=== PATIENT | male | born 1960 | race Caucasian/White ===

== ENCOUNTER → 2020-02-28 15:25 | Outpatient (BNVA) | payer OTHER, SELFPAY | PROVIDERS: Family Provider Nurse Practitioner; Referring Provider Nurse Practitioner; Visit Provider Podiatrist Foot & Ankle Surgery | DX: M79.671 Pain in right foot (principal); M21.41 Flat foot [pes planus] (acquired), right foot; M77.31 Calcaneal spur, right foot | CPT/HCPCS: 73630 ==

== ENCOUNTER 2021-03-14 09:18 | Outpatient (CLI) | payer BC, SELFPAY ==
[2021-03-14 09:25] VITALS: BP 161/94; PULSE 81; RESP 18; TEMP 36.6; O2SAT 98; BMI 31.1
[2021-03-14 09:56] VITALS: BP 139/86; PULSE 71; RESP 16; TEMP 36.7; O2SAT 93
[2021-03-14 10:54] VITALS: BP 156/83; PULSE 69; RESP 16; TEMP 36.7; O2SAT 97
[2021-03-14 10:57] VITALS: BP 156/83; PULSE 69; RESP 16; TEMP 36.7; O2SAT 97
== END 2021-03-14 09:19 | disposition home or self-care (01) ==
LOC: OPS 09:23
PROVIDERS: PCP Nurse Practitioner; Visit Provider Nurse Practitioner Family
DX: U07.1 COVID-19 (principal)
CPT/HCPCS: 96365

== ENCOUNTER → 2021-03-28 10:29 | Outpatient (BNVA) | payer OTHER, SELFPAY | PROVIDERS: PCP Nurse Practitioner; Referring Provider Nurse Practitioner; Visit Provider Podiatrist Foot & Ankle Surgery | DX: M79.672 Pain in left foot (principal) | CPT/HCPCS: 73630 ==

== ENCOUNTER 2021-04-23 11:33 | Emergency (ER) | payer OTHER, SELFPAY ==
[2021-04-23 11:44] VITALS: BP 154/85; PULSE 90; RESP 16; TEMP 36.5; O2SAT 97; BMI 32.5
[2021-04-23 11:53] VITALS: BP 154/85; PULSE 90; RESP 16; TEMP 36.3; O2SAT 97
--- NOTE | 2021-04-23 12:03 | XR_ITS ---
WS: [id number] Exam: XR wrist LT min 3V* [id number] Date/Time of Exam: 04/23/2021 12:08 PM Reason For Exam: injury There are no fractures, soft tissue swelling, or unusual calcifications. The wrist shows normal bony alignment. There is no irregularity of the bony architecture. XR/XR wrist LT min 3V* [id number] IMPRESSION: Negative left wrist.
--- NOTE | 2021-04-23 12:03 | XR_ITS ---
WS: [id number] Exam: XR hand LT min 3V* [id number] Date/Time of Exam: 04/23/2021 12:08 PM Reason For Exam: injury Findings: No fractures, soft tissue swelling, or unusual calcifications are noted. The hand shows normal bony alignment. There is no irregularity of the bony architecture. XR/XR hand LT min 3V* [id number] IMPRESSION: Normal left hand.
--- NOTE | 2021-04-23 12:04 | W.ED.UPPEXIN ---
HPI - Extremity Injury (Upper) General: Chief Complaint: Extremity Injury, Upper Stated Complaint: left hand injury Time Seen by Provider: 04/23/21 12:03 Source: patient and family Mode of arrival: ambulatory Limitations: no limitations History of Present Illness: Patient is a 60-year-old male who presents to ED today with a complaint of left wrist and hand pain/injury that he sustained while at work earlier today while working on a piece of machinery. He states the hand/wrist got jammed. No crush injury. This is a worker's comp injury. He has not noticed any swelling. He does not complain of numbness, tingling, loss of sensation. MD complaint: injury to: left, wrist and hand Onset (ago): hour(s) Other Extremity Injury: Left: hand and wrist Other injuries: none Place: work Relieving factors: immobilization Exacerbating factors: movement of extremity Associated symptoms: Reports no associated symptoms Review of Systems Musc: Reports: extremity pain (L hand) and joint pain (L wrist); Denies: extremity swelling, joint swelling, joint redness or limited range of motion Neuro: Denies: numbness in extremities or sensory changes PFSH ED PFSH: Medical History High cholesterol Hypertension Undifferentiated spondyloarthropathy Family History Denies family history of Diabetes Cancer Social History Smoking and tobacco status: former smoker Alcohol intake: never Household members: spouse Marital status: Current occupational status: employed Current occupation: [employer] Physical Exam Const: COMMON NORMALS: no acute distress, patient oriented x3, no limitations and alert GENERAL APPEARANCE: cooperative Extremity: LEFT UPPER EXTREMITY: Yes wrist (TTP distal dorsal wrist; full but painful ROM; no swelling/deformity) Left wrist: Yes neurovascular exam (normal) and Yes hand & digits (TTP thenar eminence, no swelling noted; full ROM of digits) Left hand and digits: Yes neurovascular exam (normal) Neuro: COMMON NORMALS: patient oriented x3, moves all extremities, no focal motor deficits and no sensory deficits noted SENSORIUM/ORIENTATION: Yes alert Skin: COMMON NORMALS: no rashes or lesions noted GENERAL SKIN EXAM: no rashes or lesions noted TRAUMA: no lacerations or abrasions Course Vital Signs: Vital signs: Vital Signs Temperature 97.4 F L 04/23/21 11:53 Pulse Rate 90 04/23/21 11:53 Respiratory Rate 16 04/23/21 11:53 Blood Pressure 154/85 04/23/21 11:53 Pulse Oximetry 97 04/23/21 11:53 MDM - Extremity Injury (Upper) Medical Decision Making XRs negative. Will place in velcro wrist splint and he will follow up with Worker's Comp for further evaluation. Lab Data Radiology Impressions Hand X-Ray 04/23/21 12:03 IMPRESSION: Normal left hand. Wrist X-Ray 04/23/21 12:03 IMPRESSION: Negative left wrist. Discharge Plan Discharge Patient Disposition: Home Clinical Impression: Sprain of unspecified part of left wrist and hand, initial encounter Condition: Stable Prescriptions: No Action (DME) custom orthotics with ayala's extension on right foot See Rx Instructions .Route .MEDSUPPLY Qty: 1 0RF Rx Instructions: As directed by ADIS&O silver sulfadiazine 1 % cream 1 applic topical BID 14 Days Qty: 50 2RF Rx Instructions: apply a 1.5 mm thickness cephalexin 500 mg capsule 500 mg PO BID 7 Days Qty: 14 0RF potassium citrate 10 mEq (1,080 mg) tablet extended release PO 0RF lisinopril 40 mg tablet PO 0RF hydroxychloroquine 200 mg tablet PO 0RF amlodipine 5 mg tablet PO 0RF (DME) custom orthotics with ayala's extension on right foot See Rx Instructions .Route .MEDSUPPLY Qty: 1 0RF Rx Instructions: As directed Discharge Orders: Discharge ED (Routine); Ordered 04/23/21 Ordered By: Beba Rick Referrals: Kacey Mlaone FNP [Primary Care Provider] - Activity Restrictions/Additional Instructions: As discussed please follow-up with Worker's Comp. as directed. 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
== END 2021-04-23 12:46 | disposition home or self-care (01) ==
PROVIDERS: Emergency Provider Physician Assistant; PCP Nurse Practitioner
DX: S63.92XA Sprain of unspecified part of left wrist and hand, initial encounter (principal); I10 Essential (primary) hypertension; Z87.891 Personal history of nicotine dependence; X58.XXXA Exposure to other specified factors, initial encounter; Y99.0 Civilian activity done for income or pay
CPT/HCPCS: 29260; 73110; 73130; 99282

== ENCOUNTER 2021-07-27 06:55 | Day surgery (SDC) | payer OTHER, SELFPAY ==
[2021-07-26 12:40] VITALS: BMI 31.4
[2021-07-27] VITALS (8 sets, daily range): BP systolic 108–148; BP diastolic 51–83; PULSE 55–65; RESP 10–20; TEMP 36.3–36.8; O2SAT 96–100
--- NOTE | 2021-07-27 | SCC_ITS ---
Procedure done: Excision of bone left great toe CPT code 12569 2 seconds of fluoroscopic guidance, for a cumulative dose of 0.025 mGy, was provided to Dr. Botello by the radiology department. C-arm images of the foot were saved for the patient's permanent record. [facility]
--- NOTE | 2021-07-27 06:05 | PM.OPSURHP ---
Providers/Chief Complaint Primary Care Provider: ALEX Singh History of Present Illness Clive Conrad is a 60 year old male?with a history of comminuted fracture to the left great toe. Was injured by a concrete block that fell on his left foot. Some of the fracture fragments are now proud and he is feeling them when wearing shoes and ambulating causing him pain on a daily basis. He would like to discuss surgical excision. Patient denies any subjective nausea, vomiting, fever, chills, shortness of breath or chest pain. Review of Systems General: Reports: 10 or more systems reviewed and unremarkable except in HPI and below Const: Denies: fever(s) or chills Eyes: Denies: change in vision Card: Denies: chest pain or palpitations Resp: Denies: dyspnea or productive cough GI: Denies: abdominal pain, nausea or vomiting : Denies: flank pain Musc: Reports: extremity pain, joint pain, joint stiffness, limited range of motion and deformity Skin/Breast: Reports: skin tenderness; Denies: rash Neuro: Reports: difficulty walking; Denies: numbness in extremities, sensory changes or frequent falls Psych: Denies: suicidal ideation Loyd/Lymph: Denies: easy bruising Medications/Allergies Home Medications Medication Instructions Recorded Confirmed Last Taken Type amlodipine 5 mg tablet 1 tab PO DAILY 02/28/20 07/27/21 07/27/21 History custom orthotics with ayala's #1 ea 02/28/20 05/30/21 Unknown Rx extension on right foot hydroxychloroquine 200 mg tablet 1 tab PO DAILY 02/28/20 07/27/21 07/26/21 History lisinopril 40 mg tablet 1 tab PO DAILY 02/28/20 07/27/21 07/26/21 History potassium citrate 10 mEq (1,080 1 tab PO DAILY 02/28/20 07/27/21 07/26/21 History mg) tablet,extended release custom orthotics with ayala's #1 ea 06/28/20 05/30/21 Unknown Rx extension on right foot pravastatin PO DAILY 07/26/21 07/26/21 History Allergies Allergy/AdvReac Type Severity Reaction Status Date / Time No Known Allergies Allergy Verified 07/26/21 12:33 PFSH PFSH: Medical History High cholesterol Hypertension Undifferentiated spondyloarthropathy Family History Denies family history of Diabetes Cancer Social History Smoking and tobacco status: former smoker Alcohol intake: never Household members: spouse Marital status: Current occupational status: employed 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 The following is a focused bilateral lower extremity exam. VASCULAR: Dorsalis pedis and posterior tibial arteries palpable +2.? Capillary refill time less than 3 seconds to the distal hallux bilaterally. Calf is supple and nontender proximally and distally.? No pedal edema appreciated.? Pedal hair growth present. NEUROLOGICAL: Epicritic and protopathic sensations grossly intact to the lower extremities.? +2 Achilles tendon reflex noted bilaterally.? Negative Tinel sign upon percussion of lower extremity nerves. DERMATOLOGICAL: Lower extremity skin is well-hydrated, normal texture and turgor.? There are no open sores or lesions noted to the lower extremities.? No erythema or ecchymosis present to the bilateral legs and feet.? Dystrophic left great toenail with thickening, discoloration and longitudinal ridge split down the middle. MUSCULOSKELETAL: Pain to palpation at the distal tuft of the left great toe. No pain to palpation at the right first metatarsophalangeal joint.? Osseous prominence at the dorsal medial aspect of the right first metatarsal phalangeal joint.? Less than 10 degrees of range of motion at the right first metatarsal phalangeal joint there is pain with attempted range of motion.? Ankle joint dorsiflexion 10 degrees beyond neutral.? Muscle strength 5 out of 5 in all 3 cardinal planes of bilateral foot and ankle.? Fully reducible hammertoe deformities 2 and 5 of the right foot.? CARDIOVASCULAR: S1, S2, normal rate, normal rhythm. Dorsalis pedis and posterior tibial arteries palpable. LUNGS: Clear to auscltation, no use of acessory muscles, no crackles or wheezes. A&P Assessment and plan (1) Fracture of great toe: Status: Acute Qualifiers: Encounter type: sequela Fracture alignment: displaced Fracture type: closed Laterality: left Phalanx: distal Qualified Code(s): S92.422S - Displaced fracture of distal phalanx of left great toe, sequela (2) Left foot pain: Status: Acute (3) Crushing injury of left foot and toe: Status: Acute Qualifiers: Encounter type: sequela Qualified Code(s): S97.82XS - Crushing injury of left foot, sequela; S97.102S - Crushing injury of unspecified left toe(s), sequela Plan Patient has pain on a daily basis with everyday activities such as walking and standing wearing shoes at the distal tuft of his left great toe. He attributes the pain to prominent fracture fragments they would like to have excised. On x-ray there are several loose bodies and fracture fragments that are proud. I discussed with the patient risk versus benefits of surgical excision of loose bodies and smoothing of the distal phalanx, risks include pain, bleeding, numbness, infection, failure to excise fracture fragments, damage to adjacent soft tissue structures, persistent pain following excision, chronic swelling and chronic numbness. Patient is agreeable wishes to proceed. Excision of osseous body/fracture fragments left great toe, 07/27/2021, SHEBA, wallace, supine, 30 minutes. 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
--- NOTE | 2021-07-27 07:16 | ANES.PREANE2 ---
Pre-Anesthetic Assessment Height/Weight: Height 1.83 m Weight 105.233 kg Preop Diagnosis: Posttraumatic arthritis left foot, loose body left great toe. Operation Date: 07/27/21 08:30 Proposed Procedures p Excision of bone left great toe CPT code: 95761,S92.422s,M19.172(Left) - Gurmeet Botello DPM Familial anesthetic complications: None Was Beta Hi taken within 24 hours: N/A Was Clonidine taken within 24 hours: N/A Last intake: 07/26/21 Social Tobacco and No alcohol Exam alert, oriented x 3, clear to auscultation bilaterally and regular rate & rhythm Airway Submandibular: within normal limits Cervical ROM: within normal limits Mallampati: Class III Dentition: false Pulmonary Chronic Obstructive Pulmonary Disease and Sleep Apnea (Does not use CPAP) CV/HEM Hypertension None reported Hepatic None reported GI Gastroesophageal Reflux Disease Metabolic Obese [facility] [place] Spondyloarthropathy Crush injury left foot Right hallux rigidus Neuropsych None reported Anesthetic Plan ASA status: 3 Anesthesia: Anesthesia Evaluation, General and MAC Other: We discussed risk and benefits of general anesthesia including PONV, sore throat (sometimes severe), corneal abrasion, positioning and peripheral nerve injuries, life threatening allergic reaction, post operative ICU admission requiring prolonged intubation, stroke, heart attack, , and rare incidences of recall. I discussed with the patient risks, goals, and benefits of MAC and general anesthesia. We discussed spectrum of MAC anesthesia including conversion to general as well as possibility of recall of intraoperative stimuli including discomfort/pain. Patient consents to MAC or General pending further discussion with surgeon. Risk of > 500 ml blood loss (7ml/kg in children): No Medications/Allergies Home Medications Medication Instructions Recorded Confirmed Last Taken Type amlodipine 5 mg tablet 1 tab PO DAILY 02/28/20 07/27/21 07/27/21 History custom orthotics with ayala's #1 ea 02/28/20 05/30/21 Unknown Rx extension on right foot hydroxychloroquine 200 mg tablet 1 tab PO DAILY 02/28/20 07/27/21 07/26/21 History lisinopril 40 mg tablet 1 tab PO DAILY 02/28/20 07/27/21 07/26/21 History potassium citrate 10 mEq (1,080 1 tab PO DAILY 02/28/20 07/27/21 07/26/21 History mg) tablet,extended release custom orthotics with ayala's #1 ea 06/28/20 05/30/21 Unknown Rx extension on right foot pravastatin PO DAILY 07/26/21 07/26/21 History Allergies Allergy/AdvReac Type Severity Reaction Status Date / Time No Known Allergies Allergy Verified 07/26/21 12:33 [facility] Anesthesia Medical History High cholesterol Hypertension Undifferentiated spondyloarthropathy Family History Denies family history of Diabetes Cancer Social History Smoking and tobacco status: former smoker Alcohol intake: never Household members: spouse Marital status: Current occupational status: employed Current occupation: [employer] Anesthesia Cardiac Studies: No Data to Display
[2021-07-27] MEDS: gabapentin 300 mg Capsule PO (07:33)
[2021-07-27] MEDS: CELEcoxib 200 mg Capsule 400 MG PO (07:34)
[2021-07-27] MEDS: sodium chloride 0.9% 1,000 ML 30 ML IV (07:35)
--- NOTE | 2021-07-27 08:20 | W.PM.OPSUD ---
Surgery/Procedure H&P Update DATE OF PROCEDURE: July 27, 2021 DATE H&P PERFORMED: 07/27/21 CHANGES TO PREVIOUS DOCUMENTATION: None PREOP DIAGNOSIS: Posttraumatic arthritis left foot, loose body left great toe. PLANNED PROCEDURE: Operation Date: 07/27/21 08:30 Proposed Procedures p Excision of bone left great toe CPT code: 30253,S92.422s,M19.172(Left) - Gurmeet Botello DPM
[2021-07-27] MEDS: lidocaine 2% INJ 20 mL 10 ML INJECTION (08:43)
--- NOTE | 2021-07-27 09:09 | XR_ITS ---
WS: [id number] Exam: XR foot LT min 3V* [id number] Date/Time of Exam: 07/27/2021 9:21 AM Reason For Exam: post op Comparison 03/28/2021. Healed fracture of the distal phalanx of the great toe. There is also soft tissue edema of the distal great toe. No fractures. No soft tissue foreign bodies. XR/XR foot LT min 3V* [id number] IMPRESSION: 1. Soft tissue swelling of the great toe. Healed fracture of the distal phalanx .
--- NOTE | 2021-07-27 09:09 | PM.OP ---
Operative Report Date of procedure: July 27, 2021 Pre-op diagnosis: Loose body and posttraumatic arthritis left great toe. Post-op diagnosis: Same Post-op findings: Successful removal of osseous body, loose fragment and contour back to normal anatomy at the distal phalanx left great toe. Procedure done: Excision of bone left great toe CPT code 15233 Implants: 4-0 Vicryl, 4-0 nylon Specimens removed/disposition: Loose bodies and fracture fragments, to waist Pathology: None Surgeon: Gurmeet Botello D.P.M. Special Certificate Dictator: Kyle Estimated blood loss: 5 See intraoperative documentation IV fluids: None Urine output: None Complications: None Findings: Loose fracture fragment and loose body at the left great toe. Brief History: Patient has pain on a daily basis with everyday activities such as walking and standing wearing shoes at the distal tuft of his left great toe.? He attributes the pain to prominent fracture fragments they would like to have excised.? On x-ray there are several loose bodies and fracture fragments that are proud.? I discussed with the patient risk versus benefits of surgical excision of loose bodies and smoothing of the distal phalanx, risks include pain, bleeding, numbness, infection, failure to excise fracture fragments, damage to adjacent soft tissue structures, persistent pain following excision, chronic swelling and chronic numbness.? Patient is agreeable wishes to proceed. Procedure: Under mild sedation the patient was brought to the operating room and remained on the gurney in supine position. A timeout was performed. Anesthesia was then administered by the anesthesia service. Local anesthesia injected by myself consisting of one-to-one mixture 2% lidocaine and 0.25% Marcaine plain total of 20 cc in a left first ray block fashion this was a male block. Well-padded pneumatic tourniquet applied to the left ankle. Left lower extremity was then scrubbed, prepped and draped utilizing normal aseptic technique. Left foot was exanguinated with an Esmarch bandage and the tourniquet inflated to 250 mmHg. Attention was directed to the left great toe at the distal tuft where a fishmouth incision was performed from distal medial to distal and proximal lateral around the distal tuft of the left great toe. This was performed full-thickness down to bone. Immediately encountered a loose fracture fragment at the distal lateral aspect of the distal phalanx of the left hallux, this was able to be sharply excised utilizing brown pickups and a 15 blade. The incision was irrigated with saline solution followed by a second fracture fragment that was a nonunion more laterally and dorsally at the distal phalanx of the left great toe also excised with pickups and a 15 blade and passed for operative field. No other loose bodies appreciated. There is still some rough and jagged bone that was smooth at the distal phalanx tuft utilizing a power rasp. The incision was flushed with copious amounts of sterile saline solution and closed in a layered fashion. Subcutaneous tissue closed with 4-0 Vicryl and skin closed with 4-0 nylon. Intraoperative fluoroscopy showed that the distal tuft of the left distal phalanx had been contoured back to its normal anatomy without any loose bodies appreciated. The incision site was dressed with Adaptic, sterile 4 x 4, Kerlix and Rony wrap followed by application of a cam boot. Tourniquet was deflated and a prompt hyperemic response is noted to the distal digits of the left foot. Patient tolerated the procedure and anesthesia well and was transferred to the PACU with vital signs stable and vascular status intact. Following a period of postop monitoring he will be discharged home may be weightbearing as tolerated the boot. Will follow-up in podiatry clinic next week for his first dressing change.
--- NOTE | 2021-07-27 15:00 | ANE.PACU2 ---
Inpatient post-anesthesia follow up: Airway intact: Yes Vital signs: Temperature 97.7 F Pulse Rate 57 Respiratory Rate 18 Blood Pressure 138/68 Pulse Oximetry 97 Oxygen Delivery Me thod Room Air Oxygen Flow Rate 8 Fraction of Inspir ed Oxygen Hydration adequate: Yes Nausea and vomiting: No Pain level: 1 Mental status: Baseline
== END 2021-07-27 10:15 | disposition home or self-care (01) ==
PROVIDERS: PCP Nurse Practitioner; Visit Provider Podiatrist Foot & Ankle Surgery
PROC: (CPT 28140; principal; 2021-07-27 08:20)
DX: S92.422S Displaced fracture of distal phalanx of left great toe, sequela (principal); W23.0XXA Caught, crushed, jammed, or pinched between moving objects, initial encounter; Z87.891 Personal history of nicotine dependence; J44.9 Chronic obstructive pulmonary disease, unspecified; G47.30 Sleep apnea, unspecified; I10 Essential (primary) hypertension
CPT/HCPCS: 28124; 73630; 76000; A7015; J2250; J2704; J3010; J3490; J7030

== ENCOUNTER → 2021-09-06 14:42 | Outpatient (BNVA) | payer OTHER, SELFPAY | PROVIDERS: PCP Nurse Practitioner; Visit Provider Podiatrist Foot & Ankle Surgery | DX: Z98.890 Other specified postprocedural states (principal) | CPT/HCPCS: 99024 ==

== ENCOUNTER 2021-12-12 08:45 | Observation (INO) | payer OTHER, SELFPAY ==
[2021-12-12] VITALS (80 sets, daily range): BP systolic 113–164; BP diastolic 45–94; PULSE 52–96; RESP 9–28; TEMP 36.2–36.8; O2SAT 88–98; BMI 31.1; BMI 31.5
--- NOTE | 2021-12-12 08:52 | XRR_ITS ---
PROCEDURE INFORMATION: Exam: XR Chest Exam date and time: 12/12/2021 9:03 AM Age: 61 years old Clinical indication: Pain; Angina pectoris; Additional info: Chest pain TECHNIQUE: Imaging protocol: Radiologic exam of the chest. Views: 1 view. COMPARISON: No relevant prior studies available. FINDINGS: Lungs: Mildly increased lung markings. Minimal streaky bibasilar atelectasis. No consolidation. Pleural spaces: Unremarkable. No pleural effusion. No pneumothorax. Heart/Mediastinum: Borderline cardiomegaly. Bones/joints: Degenerative changes of the spine seen. XR/XR chest 1V portable [id number] IMPRESSION: Nonspecific imaging findings, which can be seen with mild pulmonary congestion or pneumonia. Clinical correlation is recommended.
--- NOTE | 2021-12-12 08:52 | ECG_ITS ---
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 Measurements Intervals [place] Rate: 67 P: 34 RI: 149 QRS: 60 QRSD: 109 T: 53 QT: 420 QTc: 444 Interpretive Statements SINUS RHYTHM NONSPECIFIC T-WAVE ABNORMALITY No previous ECG available for comparison Electronically Signed On 12-13-2021 12:57:38 CDT by Jen Vasquez M.D. [id number]
[2021-12-12 09:03] LABS: Basophils # 0.1 10^3/uL (0.0-0.1); Basophils % 0.8 %; Eosinophils # 0.1 10^3/uL (0.0-0.8); Eosinophils % 1.5 %; Hematocrit 46.5 % (42.0-52.0); Hemoglobin 16.1 g/dL (11.7-16.6); Lymphocytes # 1.9 10^3/uL (0.8-4.8); Lymphocytes % 19.5 %; Mean Corpuscular HGB Conc 34.6 g/dL (30.0-36.0); Mean Corpuscular Hemoglobin 31.5 pg (28.0-34.0); Mean Platelet Volume 10.5 fL (7.4-10.4); Monocytes # 0.7 10^3/uL (0.2-0.9); Monocytes % 7.3 %; Neutrophils # 6.71 10^3/uL (1.8-7.7); Neutrophils % 70.5 %; Nucleated Red Blood Cells % 0 %; Platelet Count 248 10^3/cmm (130-400); Red Blood Count 5.11 10^6/uL (4.1-5.3); Red Cell Distribution Width 13.3 % (12.1-15.1); White Blood Count 9.5 10^3/uL (4.0-10.0)
--- NOTE | 2021-12-12 09:09 | W.ED.CHESTPA ---
HPI - Chest Pain General: Chief Complaint: Chest Pain Stated Complaint: Chest Pain Time Seen by Provider: 12/12/21 08:52 Source: patient Mode of arrival: ambulatory History of Present Illness: 61-year-old male who presents to the emergency room with complaint of chest pain he has had on and off for the last 2 days with was exertion relieved by rest [facility] he was still having some chest comfort he was given sublingual nitro he states his symptoms have completely resolved by the time she arrives here. He has no known cardiac history. PFSH ED PFSH: Medical History High cholesterol Hypertension Undifferentiated spondyloarthropathy Surgical History H/O foot surgery Family History Mother CAD (coronary artery disease) Denies family history of Diabetes Cancer Social History Smoking and tobacco status: current every day smoker Alcohol intake: never Substance/Drug Use: never Household members: spouse Marital status: Current occupational status: employed Current occupation: [employer] Vital Signs: Vital signs: Vital Signs Temperature 98.2 F 12/12/21 08:47 Pulse Rate 60 12/12/21 12:00 Respiratory Rate 27 H 12/12/21 12:00 Blood Pressure 133/71 12/12/21 12:00 Pulse Oximetry 97 12/12/21 12:00 Oxygen Delivery Me thod 12/12/21 12:00 MDM - Chest Pain Medical Decision Making Patient is concerning. He has had increasing chest discomfort escalating over the last week or so with anaerobic work now to the point where even walking a short distance will give him chest discomfort. Initially we are going to have him see cardiology tomorrow start him on Imdur aspirin however because [facility] is [facility] he will not be able to use see cardiology directly off to get a referral. His symptoms are escalating in nature and I do not feel he can wait significant amount of time we will place him in observation complete the rule out and set up early cardiac testing his heart score is greater than 5. Medical Records I reviewed the patient's medical records. Lab Data I reviewed the patient's lab results. : 12/12/21 08:45 12/12/21 10:19 Radiology Impressions Chest X-Ray 12/12/21 08:52 IMPRESSION: Nonspecific imaging findings, which can be seen with mild pulmonary congestion or pneumonia. Clinical correlation is recommended. Laboratory Results WBC 9.5 10^3/uL (4.0-10.0) 12/12/21 08:45 RBC 5.11 10^6/uL (4.1-5.3) 12/12/21 08:45 Hgb 16.1 g/dL (11.7-16.6) 12/12/21 08:45 Hct 46.5 % (42.0-52.0) 12/12/21 08:45 MCV 91.0 fl (80-94) 12/12/21 08:45 MCH 31.5 pg (28.0-34.0) 12/12/21 08:45 MCHC 34.6 g/dL (30.0-36.0) 12/12/21 08:45 RDW 13.3 % (12.1-15.1) 12/12/21 08:45 Plt Count 248 10^3/cmm (130-400) 12/12/21 08:45 MPV 10.5 fL (7.4-10.4) H 12/12/21 08:45 Neut % (Auto) 70.5 % 12/12/21 08:45 Lymph % (Auto) 19.5 % 12/12/21 08:45 [place] % (Auto) 7.3 % 12/12/21 08:45 Eos % (Auto) 1.5 % 12/12/21 08:45 Baso % (Auto) 0.8 % 12/12/21 08:45 Neut # (Auto) 6.71 10^3/uL (1.8-7.7) 12/12/21 08:45 Lymph # (Auto) 1.9 10^3/uL (0.8-4.8) 12/12/21 08:45 [place] # (Auto) 0.7 10^3/uL (0.2-0.9) 12/12/21 08:45 Eos # (Auto) 0.1 10^3/uL (0.0-0.8) 12/12/21 08:45 Baso # (Auto) 0.1 10^3/uL (0.0-0.1) 12/12/21 08:45 Nucleated RBC % (auto) 0 % 12/12/21 08:45 Nucleated RBCs # 0.0 /100WBC 12/12/21 08:45 Sodium 138 mmol/L (136-145) 12/12/21 10:19 Potassium 4.1 mmol/L (3.5-5.1) 12/12/21 10:19 Chloride 104 mmol/L (98-107) 12/12/21 10:19 Carbon Dioxide 22 mmol/L (22-29) 12/12/21 10:19 Anion Gap 16.1 (5-19) 12/12/21 10:19 BUN 6 mg/dL (6-20) 12/12/21 10:19 Creatinine 0.7 mg/dL (0.7-1.2) 12/12/21 10:19 GFR Calculation 115.4 mL/min (90-130) 12/12/21 10:19 Glucose 96 mg/dL (65-115) 12/12/21 10:19 Calculated Osmolality 283 mOsm/kg (285-295) L 12/12/21 10:19 Calcium 9.1 mg/dL (8.5-10.5) 12/12/21 10:19 Total Bilirubin 0.3 mg/dL (0.15-1.2) 12/12/21 10:19 AST 16 U/L (0-40) 12/12/21 10:19 ALT 12 U/L (0-41) 12/12/21 10:19 Alkaline Phosphatase 90 U/L (40-130) 12/12/21 10:19 Troponin T Baseline 10 ng/L (0-15) 12/12/21 08:45 Troponin T 120 Minute 10.04 ng/L (0-15) 12/12/21 10:19 Delta Troponin T 0.04 ABS# (0-10) 12/12/21 10:19 Total Protein 7.1 g/dL (6.6-8.7) 12/12/21 10:19 Albumin 3.8 g/dL (3.5-5.2) 12/12/21 10:19 Globulin 3.3 g/dL (1.3-4.6) 12/12/21 10:19 Discharge Plan Discharge Patient Disposition: Placed in Observation Clinical Impression: Chest pain Coding Level of Care Code ED 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
[2021-12-12 09:32] LABS: Troponin(5th) Baseline 10 ng/L (0-15)
[2021-12-12 10:50] LABS: Troponin 5 2HR 10.04 ng/L (0-15)
--- NOTE | 2021-12-12 10:52 | ECG_ITS ---
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 Measurements Intervals [place] Rate: 57 P: 42 FL: 154 QRS: 59 QRSD: 110 T: 67 QT: 458 QTc: 448 Interpretive Statements SINUS BRADYCARDIA MINIMAL ST DEPRESSION [0.025+ mV ST DEPRESSION] Compared to ECG 12/12/2021 08:57:33 ST (T wave) deviation now present Sinus rhythm no longer present T-wave abnormality no longer present Electronically Signed On 12-13-2021 13:03:41 CDT by Jen Vasquez M.D. [id number]
[2021-12-12 11:21] LABS: Troponin 5 2HR Delta 0.04 ABS# (0-10)
[2021-12-12 12:06] LABS: Alanine Aminotransferase 12 U/L (0-41); Albumin Level 3.8 g/dL (3.5-5.2); Alkaline Phosphatase 90 U/L (40-130); Aspartate Amino Transferase 16 U/L (0-40); Blood Urea Nitrogen 6 mg/dL (6-20); Calcium 9.1 mg/dL (8.5-10.5); Carbon Dioxide 22 mmol/L (22-29); Chloride 104 mmol/L (98-107); Creatinine Clr Calc Pharmacy 141.8953; Globulin 3.3 g/dL (1.3-4.6); Glomerular Filtration Rate 115.4 mL/min (90-130); Glucose 96 mg/dL (65-115); Osmolality Calculated 283 mOsm/kg (285-295); Sodium 138 mmol/L (136-145); Total Bilirubin 0.3 mg/dL (0.15-1.2); Total Protein 7.1 g/dL (6.6-8.7)
[2021-12-12 12:13] LABS: Anion Gap 16.1 (5-19); Potassium 4.1 mmol/L (3.5-5.1)
--- NOTE | 2021-12-12 12:34 | DCPLANNER ---
Addendum entered by Adrianna Osorio 02/11/22 15:39: Patient had a follow up appointment scheduled with heart care - patient did attend appointment. Original Note: junior project manager was asked to schedule a follow up appointment for patient with cardiology. junior project manager called heart care, spoke with Robyn, gave clinic patients information. A follow up appointment was scheduled for Saturday, December 18, 2021 at 2:15 with . junior project manager informed ER physician of the scheduled appointment. [facility] has [facility], renal case manager sent patients information to [facility] for the authorization process to be started.
--- NOTE | 2021-12-12 13:20 | P.HP_ITS ---
Providers/Chief Complaint Primary Care Provider: ALEX Singh Chief Complaint: Chest Pain History of Present Illness Pleasant 61-year-old gentleman current smoker with history of spondyloarthropathy, HTN, HLD, since Friday has been experiencing chest discomfort and dyspnea with exertion with swinging a pick ax, however, today experienced at even walking to his truck, central, not worsened with deep inspiration, movement, last night thought it initially felt a little bit like heartburn, but later on felt that it was not. Does not have any prior history of [place] or stenting himself, his mother did have CAD and coronary stents. Did appear to have response to nitroglycerin at CT today. Review of Systems Const: Denies: fever(s), chills, body aches or malaise Eyes: Denies: change in vision, eye discomfort or eye redness ENMT: Denies: throat pain, oral sores or ear or mastoid pain Card: Reports: chest pain and dyspnea on exertion; Denies: edema, pre-syncope or orthopnea Resp: Denies: productive cough, change in phlegm color or hemoptysis GI: Denies: abdominal pain, nausea, vomiting, diarrhea, constipation, hematochezia or melena : Denies: flank pain, difficulty urinating, urinary frequency or hematuria Musc: Denies: back pain, joint swelling or joint redness Skin/Breast: Denies: rash or new lesions Neuro: Denies: headache(s), numbness in extremities, weakness in extremities, dizziness, confusion or seizure-like activity Endo: Denies: polyuria or polydipsia Loyd/Lymph: Denies: easy bleeding or tender lymph nodes All/Imm: Denies: urticaria or tongue swelling Medications/Allergies Home Medications Medication Instructions Recorded Confirmed Last Taken Type amlodipine 5 mg tablet 5 mg PO DAILY 02/28/20 12/12/21 12/12/21 History custom orthotics with jamie's #1 ea 02/28/20 12/12/21 Unknown Rx extension on right foot hydroxychloroquine 200 mg tablet 200 mg PO DAILY 02/28/20 12/12/21 12/12/21 History potassium citrate 10 mEq (1,080 10 meq PO DAILY 02/28/20 12/12/21 12/12/21 History mg) tablet,extended release custom orthotics with ayala's #1 ea 06/28/20 12/12/21 Unknown Rx extension on right foot Prevagen 1 tab PO DAILY 12/12/21 12/12/21 12/12/21 History aspirin 81 mg tablet,delayed 81 mg PO DAILY #30 tabs 12/12/21 Unknown Rx release isosorbide mononitrate 30 mg 30 mg PO DAILY #30 tabs 12/12/21 Unknown Rx tablet,extended release 24 hr lisinopril 10 mg tablet 10 mg PO DAILY #30 tabs 12/12/21 Unknown Rx nitroglycerin 0.4 mg sublingual 0.4 mg sublingual Q5M PRN chest 12/12/21 Unknown Rx tablet pain #30 tabs pravastatin 80 mg tablet 80 mg PO QPM 12/12/21 12/12/21 12/11/21 History vitamin B complex 1 tab PO DAILY 12/12/21 12/12/21 12/12/21 History Allergies Allergy/AdvReac Type Severity Reaction Status Date / Time No Known Allergies Allergy Verified 12/12/21 11:01 PFSH Acute PFSH: Medical History High cholesterol Hypertension Undifferentiated spondyloarthropathy Surgical History H/O foot surgery Family History Mother CAD (coronary artery disease) Denies family history of Diabetes Cancer Social History Smoking and tobacco status: current every day smoker Alcohol intake: never Substance/Drug Use: never Household members: spouse Marital status: Current occupational status: employed Current occupation: [employer] Vitals/I&O/Wt Last Vital Signs Temp 98.2 F 12/12/21 08:47 Pulse 60 12/12/21 12:00 Resp 27 H 12/12/21 12:00 BP 133/71 12/12/21 12:00 Pulse Ox 97 12/12/21 12:00 O2 Del Method 12/12/21 12:00 Weight last 48 hrs Weight 104.326 kg Physical Exam Const: COMMON NORMALS: patient oriented x3 and alert GENERAL APPEARANCE: cooperative NUTRITIONAL APPEARANCE: overweight ORIENTATION/CONSCIOUSNESS: Yes awake HENMT: COMMON NORMALS: oropharynx normal Neck/C-Spine: COMMON NORMALS: no JVD Resp: COMMON NORMALS: normal respiratory effort and clear to auscultation bilaterally AUSCULTATION: clear to auscultation bilaterally Cardio: COMMON NORMALS: no JVD, regular rhythm, S1 normal heart sound present, S2 normal heart sound present and No murmurs present (Cardio) RHYTHM: regular rhythm HEART SOUNDS: S1 normal heart sound present and S2 normal heart sound present GI: COMMON NORMALS: Normal to inspection, nondistended, normoactive bowel sounds present, Soft to palpation and non-tender PALPATION: Yes Soft to palpation Extremity: COMMON NORMALS: no joint enlargement and no pedal edema Neuro: COMMON NORMALS: patient oriented x3 and moves all extremities SENSO RIUM/ORIENTATION: Yes alert Skin: COMMON NORMALS: no rashes or lesions noted GENERAL SKIN EXAM: no rashes or lesions noted Data : 12/12/21 08:45 12/12/21 10:19 A&P Assessment and plan (1) Chest pain: Complete troponin EKG series due to progressive nature of the symptoms, today with even low exertion. Nitroglycerin as needed in case of recurrence. We will additionally assess with stress test in the morning. Check CK. Check D-dimer. Plan Abnormal chest imaging: Chest x-ray with nonspecific findings possibly mild pulmonary congestion or pneumonia. He otherwise is afebrile, without leukocytosis, some mild cough, although not new, states has been diagnosed with early stages of COPD. Will check BNP. COVID-19. Spondyloarthropathy HTN HLD Attestations Medical Necessity Statement*: Place in observation for assessment of episodes of chest pain, progressive in nature now with light exertion associated also with dyspnea, with risk factors of coronary artery disease. Coding Level of Care Code Acute First Cook for [facility] Fwd Diagnoses Chest pain R07.9
[2021-12-12 13:58] LABS: Creatine Phosphokinase 88 U/L (39-308)
[2021-12-12 14:05] LABS: D Dimer <= 0.27 ug/mIFEU (0-0.59)
[2021-12-12 14:10] LABS: NT Pro B Type Natriuretic Pept 85 pg/mL (0-125)
[2021-12-12 15:30] LABS: Troponin 5 6HR 8.67 ng/L (0-15)
[2021-12-12 15:42] LABS: Troponin 5 6HR Delta -1.33 ng/L (0-12)
[2021-12-12 15:47] LABS: Adenovirus Not Detected (NOT DETECT); Chlamydia Pneumoniae Not Detected (NOT DETECT); Coronavirus 229E,HKU1,NL63,OC4 Not Detected (NOT DETECT); Human Metapneumovirus Not Detected (NOT DETECT); Human Rhinovirus/Enterovirus Not Detected (NOT DETECT); Influenza A Not Detected (NOT DETECT); Influenza A H1 Not Detected (NOT DETECT); Influenza A H1-2009 Not Detected (NOT DETECT); Influenza A H3 Not Detected (NOT DETECT); Influenza B Not Detected (NOT DETECT); Mycoplasma Pneumoniae Not Detected (NOT DETECT); Parainfluenza Virus Type 1 Not Detected (NOT DETECT); Parainfluenza Virus Type 2 Not Detected (NOT DETECT); Parainfluenza Virus Type 3 Not Detected (NOT DETECT); Parainfluenza Virus Type 4 Not Detected (NOT DETECT); Respiratory Syncytial Virus A Not Detected (NOT DETECT); Respiratory Syncytial Virus B Not Detected (NOT DETECT); SARS-COV-2 Not Detected (NOT DETECT)
--- NOTE | 2021-12-12 16:40 | ECG_ITS ---
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 Measurements Intervals [place] Rate: 60 P: 25 OR: 148 QRS: 61 QRSD: 106 T: 59 QT: 448 QTc: 450 Interpretive Statements SINUS RHYTHM MINIMAL ST DEPRESSION [0.025+ mV ST DEPRESSION] Compared to ECG 12/12/2021 11:00:14 Sinus bradycardia no longer present ST (T wave) deviation still present Electronically Signed On 12-13-2021 13:00:23 CDT by Jen Vasquez M.D. [id number]
[2021-12-12] MEDS: atorvastatin 40 mg Tablet 20 MG PO (17:54)
[2021-12-12] MEDS: nicotine 21 mg Patch 1 PATCH TRANSDERMA (21:09)
[2021-12-12] MEDS: trazodone 50 mg Tablet 25 MG PO (21:10)
[2021-12-13] VITALS (75 sets, daily range): BP systolic 117–167; BP diastolic 51–97; PULSE 51–77; RESP 9–36; TEMP 36.2–36.6; O2SAT 88–98
--- NOTE | 2021-12-13 | ECG_ITS ---
[facility] Test Date: 2021-12-13 Pat Name: Clive Conrad Department: Room: ICU02 Gender: Male Telephone Maintainer: : 1960 Requested By: David Hui Order Number: [id number] Panda MD: Mike Wheeler M.D. Interpretive Statements NAME OF STUDY: LEXISCAN SESTAMIBI STRESS TEST INDICATION: Chest Pain, PROCEDURE: At the baseline, the EKG revealed sinus bradycardia with a heart rate of 58 bpm. Nonspecific IVCD.. The baseline heart was 58 bpm with a blood pressue of 156/80 mm of Hg Lexiscan was infused over a period of 20 seconds. A total of 0.4 milligrams of Lexiscan was infused. The stress phase was continued for a total of 5 minutes. Heart rate at the end of the stress phase was 75 bpm with a blood pressure 150/73 mm of Hg. The EKG at the peak infusion revealed no significant changes. Sestamibi was injected 20 seconds after the Lexiscan infusion. Heart rate at the end of the recovery phase was 70 bpm with a blood pressure of 151/73 mm of Hg. CONCLUSION: 1. No significant EKG changes with the LexiScan infusion 2. No LexiScan induced chest pain or cardiac arrhythmia 3. Normal blood pressure and heart rate response 4. Sestamibi/sestamibi perfusion scan pending; see separate report. Electronically Signed On 12-14-2021 16:20:56 CDT by Mike Wheeler M.D. [id number]
--- NOTE | 2021-12-13 06:00 | NMCV_ITS ---
NM fazal perf SPECT r/s* [id number] Clive Conrad Age: 61 Gender: M : 1960 Exam Date: 12/13/2021 06:00 Ordering Phys: David Hui MD Technologist: JOSE Hager Exam Location: [facility] Indications: CHEST PAIN STRESS TEST Please [facility] IMAGE PROTOCOL Rest/Stress 1 Lexiscan Day Radiopharmaceutical Dose (mCi) Administration Site Administered by Rest: Tc-99m 10.4 IV JOSE Hager Sestamibi Stress:Tc-99m 32.3 IV JOSE Nieves Sestamibi Rest: 13-Dec-2021 60 Discovery 630 Stress: 13-Dec-2021 30 Discovery 630 0.4mg Lexiscan. Images obtained in supine and prone position. SPECT RESULTS Technical Quality: Excellent Raw Data Analysis: Normal Image Corrections: No attenuation or motion correction applied Summed Stress Score: 10 Summed Rest Score: 7 Summed Difference Score: 4 PERFUSION FINDINGS Moderate area of moderate to severely decreases uptake in the basal, mid and apical inferior; mid inferolateral, apical lateral and LV apex with significant reversibility FUNCTIONAL RESULTS (calculated via Gated SPECT) Stress Image LV EF (%): 39 Stress EDV (mL):191 TID: 1.02 Stress ESV (mL):117 FUNCTIONAL FINDINGS: Segmental wall motion analysis revealing diffuse hypokinesia of the left ventricle. IMPRESSIONS 1. Myocardial perfusion imaging revealing moderate area of moderate to severely decreased tracer uptake in the inferior, inferolateral and apical regions with significant reversibility suggesting myocardial scarring with ischemia in the distribution of the right coronary artery and circumflex artery. 2. Diminished ejection fraction of 39%. 3. LV wall motion analysis revealing diffuse hypokinesia of the left ventricle. 4. Moderately dilated LV cavity with an end-systolic volume of 117 ml. No similar previous studies are available for comparison Dr Mike Wheeler MD FAC (Electronically Signed) Final Date: 13 December 2021 17:07 S
--- NOTE | 2021-12-13 06:37 | PC.NURSE ---
This nurse was notified by Juan Muñoz, LAST TURNER, that the patient had no t had caffiene overnight. When Nuclear Medicine, ABRIL MuñozT, questioned the patient he stated that he drank a soda at 2200 last evening. ASA Muñoz, informed the LAST TURNER and myself that the stress portion of the test could not be completed untial at least 1000 this AM.
--- NOTE | 2021-12-13 07:06 | PC.NURSE ---
Shift Note Frequent safety and comfort rounds continue. Orders and/or nursing care completed as indicated. Patient monitored for response to intervention and treatment(s). Education provided includes stress test. Patient verbalized understanding of teaching. Patient had an uneventful shift, remains alert & oriented x4 on room air. No wounds or skin issues noted at this time. Patient denies chest pain throughout shift. NPO diet since midnight, stress test rescheduled for 1000 or after due to caffeine consumption at 2200 on 12/12. Will continue to monitor.
[2021-12-13] MEDS: amlodipine 5 mg Tablet PO (08:51)
--- NOTE | 2021-12-13 09:54 | PC.CHAP ---
Pastoral Care Encounter/Spiritual Assessment Type of Contact [] Declined brush machine setter visit [] Patient/Family/Request visit [] Outpatient visit [] Follow-up visit [] Physician referral [] Code/Alert [x] Routine visit [] Staff referral [] Actively dying [] Patient sleeping [x] Family support [] [] Out of room [] Palliative care [] [x] Receiving care in room [] Pre-surgical visit [] Trauma [] Long length of stay [x] ICU visit [x] Other: PT awaiting stress test... Relational/Emotional Strength [] Patient feels connected with others/family/visitors/staff [] Distress [] Loneliness/isolation [] Abandonment Spirituality of Patient [] Person of Darlene [] Attends Zoroastrian of their Darlene [] Believes in Prayer [] Reads Bible or Hinduism materials [] There are Spiritual issues to be addressed Cutter Barrel Drum Interventions [x] Prayer [] Active listening [] Non-anxious presence [] Spiritual/emotional support [] Crisis/trauma care [] Spiritual counseling [] Bereavement support [] Provided bereavement packet [] Provided Bible/devotional materials [] Provided toy/stuffed animal, coloring book to patient or family member [] Provided Communion [] Anointing/[place] [] Salvation [x] Completed spiritual assessment [] Other: Impact on Illness or Injury [] Angry [] Fearful [] Anxious [] Often cries [] Exhaustion [] Unable to work [] Unable to attend sikhism [] Unable to walk/stand [] Unable to read [] Unable to drive [] Unable to eat/drink [] Unable to sleep [] Unable to be with family [] Patient intubated [] Other: Summary Time spent with patient
[2021-12-13] MEDS: hydroxychloroquine 200 mg Tablet PO (09:56)
[2021-12-13] MEDS: regadenoson 0.4 Mg/5 ml Syringe IVP (12:52)
--- NOTE | 2021-12-13 17:13 | P.PN_ITS ---
Subjective Subjective: Today he has been pain-free at rest and with mobility within ICU room where he is as overflow from CSU. He has not been short of breath, has not had any other symptoms at rest. Later on we discussed preliminary results of the stress test, with finding of area of scarring but also with surrounding ischemia. Discussed obtaining consultation with cardiology and encouraged him to stay for the consultation and further evaluation given abnormal findings he would be at risk of TN and other serious or life-threatening cardiac complications. He and family verbalized understanding, he is staying to speak with cardiology. Vitals/I&O/Wt Last Vital Signs Temp 97.1 F L 12/13/21 06:55 Pulse 77 12/13/21 15:22 Resp 18 12/13/21 14:00 BP 151/73 12/13/21 14:12 Pulse Ox 95 12/13/21 15:22 O2 Del Method 12/13/21 15:22 12/13/21 12/13/21 12/13/21 06:59 14:59 22:59 Intake Total 0 / 0 Balance 0 / 0 Weight last 48 hrs Weight 105.375 kg Weight 104.326 kg Physical Exam Const: COMMON NORMALS: patient oriented x3 and alert GENERAL APPEARANCE: cooperative NUTRITIONAL APPEARANCE: overweight ORIENTATION/CONSCIOUSNESS: Yes awake HENMT: COMMON NORMALS: oropharynx normal Neck/C-Spine: COMMON NORMALS: no JVD Resp: COMMON NORMALS: normal respiratory effort and clear to auscultation bilaterally AUSCULTATION: clear to auscultation bilaterally Cardio: COMMON NORMALS: no JVD, regular rhythm, S1 normal heart sound present, S2 normal heart sound present and No murmurs present (Cardio) RHYTHM: regular rhythm HEART SOUNDS: S1 normal heart sound present and S2 normal heart sound present GI: COMMON NORMALS: Normal to inspection, nondistended, normoactive bowel sounds present, Soft to palpation and non-tender PALPATION: Yes Soft to palpation Extremity: COMMON NORMALS: no joint enlargement and no pedal edema Neuro: COMMON NORMALS: patient oriented x3 and moves all extremities SENSORIUM/ORIENTATION: Yes alert Skin: COMMON NORMALS: no rashes or lesions noted GENERAL SKIN EXAM: no rashes or lesions noted Data : 12/12/21 08:45 12/12/21 10:19 A&P Assessment and plan (1) Chest pain: Cardiology consultation requested as per discussion with him and family regarding abnormal preliminary stress test results with prior scarring, but also surrounding ischemia. Plan Abnormal chest imaging: Chest x-ray with nonspecific findings possibly mild pulmonary congestion or pneumonia. He otherwise is afebrile, without leukocytosis, some mild cough, although not new, states has been diagnosed with early stages of COPD. NT proBNP normal. COVID-19 PCR negative. D-dimer not elevated. Follow-up with primary provider, consider follow-up imaging and pulmonary function testing. Smoking addiction: Encourage cessation. Nicotine replacement as needed. Spondyloarthropathy HTN HLD Attestations Medical Necessity Statement*: Continue hospitalization for assessment of man agement following episodes of chest pain, with abnormal stress test. 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
--- NOTE | 2021-12-13 17:30 | PM.CONSULT ---
Providers/Reason For Consult Consulting Physician/Specialty*: NIESHA Wheeler MD/cardiology Reason for Consult*: Chest pain/abnormal Myocardial perfusion imaging Requesting Physician: Dr. Hui Attending Physician: David Hui Primary Care Provider: ALEX Singh History of Present Illness History of Present Illness Clive Conrad is a 61 year old male with a history of hypertension and dyslipidemia, is admitted to hospital through the emergency room where he presented with complaints of chest pain and shortness of breath. This patient apparently has been having some amount of dyspnea on exertion and easy fatigability for the last year and a half. Since last Friday, he been experiencing more shortness of breath and fatigue. 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 According to him, every 4 to 5 minutes, he has to stop drinking and take a rest because of the fatigue and shortness of breath. As he comes home in the evening, he started having tight feeling in the chest especially after dinner. This may last for half an hour or so and then gradually goes away as he gets up and move around. On Friday evening, he had the symptoms lasting for couple of hours. Yesterday morning he was walking up to his truck to go to work. He apparently became extremely short of breath and tired. For that reason, he decided to go to his primary care provider at the [facility]. As he was driving to the clinic, he started having chest pain. The pain was moderate intensity radiating up across the mid substernal region associate with some shortness of breath. At the [facility], because of the chest pain, the EMS was called in. He was 1 sublingual nitroglycerin which relieved the pain. He was brought to the emergency room for further evaluation management. The chest pain might have lasted for a total of half an hour or so. The initial cardiac work-up in the emergency room was unremarkable. While waiting in the emergency room, patient had an episode of chest pain lasting for few minutes. Has not had a recurrence of chest pain since then. Today he had a Myocardial perfusion imaging. During the Lexiscan infusion, he had some tight feeling in the neck. The perfusion scan revealed moderate area of moderate to severely decrease his uptake in the inferolateral wall region with significant reversibility, suggesting myocardial scarring with ischemia in the distribution of the left circumflex artery/right coronary artery. The LV ejection fraction was 39%, based on the nuclear scan. The LV cavity also was found to be dilated with an end-systolic volume of 117 mL. Patient has no previous history for any coronary artery disease, myocardial infarction or congestive heart failure. He has a history of rheumatoid arthritis for the last 20 years or so. He also is known to have kidney stones. His mother is known to have coronary disease, started in her 50s. She is in her 70s at this time. No other known family history. Has a history of smoking abuse. No alcohol abuse or any other substance abuse. Review of Systems Narrative: CONSTITUTIONAL: No fever or chills. EYES: No blurring of vision or other visual disturbances lately. ENT: No hoarseness of voice, auditory disturbances or sore throat. CARDIOVASCULAR: As mentioned above. RESPIRATORY: Has been having dyspnea on exertion. GASTROINTESTINAL: No hematemesis or melena. GENITOURINARY: Kidney stones as mentioned above INTEGUMENTARY: No skin rashes or history of skin cancer. NEURO: No transient ischemic attacks or amaurosis. PSYCHIATRIC: No history of psychosis or major depression. HEMATOLOGIC: No bleeding disorders or significant anemia. ENDOCRINE: No history of polyuria or polydipsia. MUSCULOSKELETAL: History of rheumatoid arthritis as mentioned above ALLERGY/IMMUNOLOGY: As mentioned above. Medications/Allergies Home Medications Medication Instructions Recorded Confirmed Last Taken Type amlodipine 5 mg tablet 5 mg PO DAILY 02/28/20 12/12/21 12/12/21 History custom orthotics with ayala's #1 ea 02/28/20 12/12/21 Unknown Rx extension on right foot hydroxychloroquine 200 mg tablet 200 mg PO DAILY 02/28/20 12/12/21 12/12/21 History potassium citrate 10 mEq (1,080 10 meq PO DAILY 02/28/20 12/12/21 12/12/21 History mg) tablet,extended release custom orthotics with ayala's #1 ea 06/28/20 12/12/21 Unknown Rx extension on right foot Prevagen 1 tab PO DAILY 12/12/21 12/12/21 12/12/21 History aspirin 81 mg tablet,delayed 81 mg PO DAILY #30 tabs 12/12/21 Unknown Rx release isosorbide mononitrate 30 mg 30 mg PO DAILY #30 tabs 12/12/21 Unknown Rx tablet,extended release 24 hr lisinopril 10 mg tablet 10 mg PO DAILY #30 tabs 12/12/21 Unknown Rx nitroglycerin 0.4 mg sublingual 0.4 mg sublingual Q5M PRN chest 12/12/21 Unknown Rx tablet pain #30 tabs pravastatin 80 mg tablet 80 mg PO QPM 12/12/21 12/12/21 12/11/21 History vitamin B complex 1 tab PO DAILY 12/12/21 12/12/21 12/12/21 History potassium citrate 10 mEq (1,080 10 meq PO DAILY PRN kidney stones 12/13/21 12/13/21 Unknown History mg) tablet,extended release Allergies Allergy/AdvReac Type Severity Reaction Status Date / Time No Known Allergies Allergy Verified 12/12/21 11:01 Current Medications Generic Name Dose Route Start Last Admin Trade Name Freq PRN Reason Stop Dose Admin Amlodipine Besylate 5 mg 12/13/21 09:00 12/13/21 08:51 Amlodipine 5 Mg Tablet PO 5 mg DAILY RANJITH Administration Atorvastatin Calcium 20 mg 12/12/21 18:00 12/12/21 17:54 Atorvastatin 40 Mg Tablet PO 20 mg QPM RANJITH Administration Hydroxychloroquine Sulfate 200 mg 12/13/21 09:00 12/13/21 09:56 Hydroxychloroquine 200 Mg Tablet PO 200 mg DAILY RANJITH Administration Nicotine 1 patch 12/12/21 20:30 12/12/21 21:09 Nicotine 21 Mg Patch TRANSDERMA 1 patch Q24H RANJITH Administration Trazodone HCl 25 mg 12/12/21 21:00 12/12/21 21:10 Trazodone 50 Mg Tablet PO 25 mg BEDTIME RANJITH Administration PFSH Acute PFSH: Medical History High cholesterol Hypertension Undifferentiated spondyloarthropathy Surgical History H/O foot surgery Family History Mother CAD (coronary artery disease) Denies family history of Diabetes Cancer Social History Smoking and tobacco status: current every day smoker Alcohol intake: never Household members: spouse Marital status: Current occupational status: employed Current occupation: [employer] Vitals/I&O/Wt Last Vital Signs Temp 97.1 F L 12/13/21 06:55 Pulse 63 12/13/21 17:00 Resp 15 12/13/21 17:00 BP 117/73 12/13/21 17:00 Pulse Ox 96 12/13/21 17:00 O2 Del Method 12/13/21 17:00 12/13/21 12/13/21 12/13/21 06:59 14:59 22:59 Intake Total 0 / 0 Balance 0 / 0 Weight last 48 hrs Weight 232 lb 5 oz Weight 230 lb Physical Exam Narrative: GENERAL: The patient is alert and oriented times three. Not in any acute distress. HEENT: No significant pallor, icterus or lymphadenopathy.Oral cavity: There are no mucous membrane lesions. NECK: Trachea appears to be central. No masses noted. No JVD or thyromegaly appreciated. RESPIRATORY: Chest is symmetrical. No intercostals muscle retraction or any accessory muscle activation. There is no chest wall tenderness. Breath sounds are heard bilaterally. No rales or rhonchi heard. No evidence of any consolidation. BREASTS: Deferred. HEART: The heart sounds are normal. No S3 or S4. No significant murmurs. No pericardial rub ABDOMEN: No vessel pulsations or distention. No tenderness. No organomegaly appreciated. Bowel sounds are normally heard. : Deferred. RECTAL: Deferred. LYMPHATIC: No lymphadenopathy noted in the neck. EXTREMITIES: No edema or cyanosis. No clubbing. MUSCULOSKELETAL: No acute joint deformities or swelling SKIN: There are no significant rashes or ecchymosis NEUROPSYCHIATRIC: The patient is alert and oriented x3. Appears to be in a good mood. No tremors or rigidity noted. Data : 12/12/21 08:45 12/12/21 10:19 Other Labs: Laboratory Last Values WBC 9.5 10^3/uL (4.0-10.0) 12/12/21 08:45 RBC 5.11 10^6/uL (4.1-5.3) 12/12/21 08:45 Hgb 16.1 g/dL (11.7-16.6) 12/12/21 08:45 Hct 46.5 % (42.0-52.0) 12/12/21 08:45 MCV 91.0 fl (80-94) 12/12/21 08:45 MCH 31.5 pg (28.0-34.0) 12/12/21 08:45 MCHC 34.6 g/dL (30.0-36.0) 12/12/21 08:45 RDW 13.3 % (12.1-15.1) 12/12/21 08:45 Plt Count 248 10^3/cmm (130-400) 12/12/21 08:45 MPV 10.5 fL (7.4-10.4) H 12/12/21 08:45 Neut % (Auto) 70.5 % 12/12/21 08:45 Lymph % (Auto) 19.5 % 12/12/21 08:45 [place] % (Auto) 7.3 % 12/12/21 08:45 Eos % (Auto) 1.5 % 12/12/21 08:45 Baso % (Auto) 0.8 % 12/12/21 08:45 Neut # (Auto) 6.71 10^3/uL (1.8-7.7) 12/12/21 08:45 Lymph # (Auto) 1.9 10^3/uL (0.8-4.8) 12/12/21 08:45 [place] # (Auto) 0.7 10^3/uL (0.2-0.9) 12/12/21 08:45 Eos # (Auto) 0.1 10^3/uL (0.0-0.8) 12/12/21 08:45 Baso # (Auto) 0.1 10^3/uL (0.0-0.1) 12/12/21 08:45 Nucleated RBC % (auto) 0 % 12/12/21 08:45 Nucleated RBCs # 0.0 /100WBC 12/12/21 08:45 D-Dimer <= 0.27 ug/mIFEU (0-0.59) 12/12/21 08:45 Sodium 138 mmol/L (136-145) 12/12/21 10:19 Potassium 4.1 mmol/L (3.5-5.1) 12/12/21 10:19 Chloride 104 mmol/L (98-107) 12/12/21 10:19 Carbon Dioxide 22 mmol/L (22-29) 12/12/21 10:19 Anion Gap 16.1 (5-19) 12/12/21 10:19 BUN 6 mg/dL (6-20) 12/12/21 10:19 Creatinine 0.7 mg/dL (0.7-1.2) 12/12/21 10:19 GFR Calculation 115.4 mL/min (90-130) 12/12/21 10:19 Glucose 96 mg/dL (65-115) 12/12/21 10:19 Calculated Osmolality 283 mOsm/kg (285-295) L 12/12/21 10:19 Calcium 9.1 mg/dL (8.5-10.5) 12/12/21 10:19 Total Bilirubin 0.3 mg/dL (0.15-1.2) 12/12/21 10:19 AST 16 U/L (0-40) 12/12/21 10:19 ALT 12 U/L (0-41) 12/12/21 10:19 Alkaline Phosphatase 90 U/L (40-130) 12/12/21 10:19 Creatine Kinase 88 U/L (39-308) 12/12/21 12:00 Troponin T Baseline 10 ng/L (0-15) 12/12/21 08:45 Troponin T 120 Minute 10.04 ng/L (0-15) 12/12/21 10:19 Delta Troponin T 0.04 ABS# (0-10) 12/12/21 10:19 Troponin T Hi Sens 6Hr 8.67 ng/L (0-15) 12/12/21 14:50 Troponin T Hi Sens 6Hr Delta -1.33 ng/L (0-12) L 12/12/21 14:50 NT-Pro-B Natriuret Pep 85 pg/mL (0-125) 12/12/21 12:00 Total Protein 7.1 g/dL (6.6-8.7) 12/12/21 10:19 Albumin 3.8 g/dL (3.5-5.2) 12/12/21 10:19 Globulin 3.3 g/dL (1.3-4.6) 12/12/21 10:19 Coronavirus 229E (PCR) Not detected (NOT DETECT) 12/12/21 13:55 SARS-CoV-2 (PCR) Not detected (NOT DETECT) 12/12/21 13:55 Myocardial perfusion imaging: My impression: ?1.? Myocardial perfusion imaging revealing moderate area of moderate to ?severely decreased tracer uptake in the inferior, inferolateral and apical ?regions with significant reversibility suggesting myocardial scarring with ?ischemia in the distribution of the right coronary artery and circumflex ?artery. ?2.? Diminished ejection fraction of 39%. ?3.? LV wall motion analysis revealing diffuse hypokinesia of the left ?ventricle. ?4.? Moderately dilated LV cavity with an end-systolic volume of 117 ml. ?No similar previous studies are available for comparison EKG 1: My Interpretation: The EKG showed a sinus rhythm with some nonspecific ST changes. Normal AK and QRS duration. EKG computer-generated impression: Chest X-Ray 12/12/21 08:52 IMPRESSION: Nonspecific imaging findings, which can be seen with mild pulmonary congestion or pneumonia. Clinical correlation is recommended. A&P Assessment and plan (1) Abnormal nuclear cardiac imaging test: The patient's abnormal Myocardial perfusion imaging is suggestive of ischemia in the distribution of the right coronary artery/circumflex artery. Currently he seems to be stable. He also seems to have some LV dysfunction based on the nuclear scan. For further evaluation of his coronary status, he requires a cardiac catheterization. The risk of bleeding, hematoma, vascular injury, myocardial infarction, CVA, renal failure and other concomitant complications were explained in detail. Patient understood this well and consented to proceed. We may come From n.p.o. after midnight. Based on the angiogram findings, further recommendations will be made. (2) Chest pain: Patient may be started on metoprolol 25 mg p.o. twice daily. Isosorbide and mononitrate 30 mg p.o. daily. Other medications may be continued. Most likely the patient may have an unstable coronary syndrome. He has been treated with nitrates, aspirin, beta-blockers and Lovenox. (3) Benign essential hypertension with target blood pressure below 140/90: Patient's blood pressures are still stable. We will try to optimize the antihypertensive medications. (4) Dyslipidemia: Patient is on atorvastatin. This may be continued. (5) Smoking addiction: Patient strongly advised to quit smoking. Also advised to keep area from the caffeine containing products. Plan Echocardiogram would be helpful to evaluate LV function. The ejection fraction was 39% by the nuclear scan. We will keep him n.p.o. after midnight. Tentatively scheduled for cardiac catheterization tomorrow morning. Based on the patient's clinical progress and results of the above, further recommendations will be made. Consult Attestations Medical Necessity Statement: Patient requires continued hospital stay for close monitoring and further management Coding Level of Care Code Acute Vertical Roll Operator for Chg Fwd History Expanded Problem Focused Exam Detailed Medical Decision Making High Complexity Diagnoses Abnormal nuclear cardiac imaging test R93.1 Chest pain R07.9 Benign essential hypertension with target blood pressure below 140/90 I10 Dyslipidemia E78.5 Smoking addiction F17.200
--- NOTE | 2021-12-13 18:06 | USCV_ITS ---
Transthoracic Echo w Contrast Clive Conrad Age: 61 Gender: M : 1960 Exam Date: 12/13/2021 18:53 Ordering Phys: Mike Wheeler MD ([email or web address]) Technologist: ZOE Exam Location: [facility] [place] Indication: abnormal stress test, chest pain. No history of cardiac intervention per patient. BP: 117 / 73 HR: 68 Rhythm: Sinus Technical Quality: Adequate with [employer] MEASUREMENTS (Male / Female) Normal Values 2D ECHO LV Diastolic Diameter PLAX 5.6 cm 4.2 - 5.9 / 3.9 - 5.3 cm LV Systolic Diameter PLAX 4.0 cm IVS Diastolic Thickness 1.3 cm 0.6 - 1.0 / 0.6 - 0.9 cm IVS Systolic Thickness 1.7 cm LVPW Diastolic Thickness 1.3 cm 0.6 - 1.0 / 0.6 - 0.9 cm LVPW Systolic Thickness 1.6 cm LVOT Diameter 2.3 cm LV Ejection Fraction 2D Teich 54.6 % LV Ejection Fraction MOD 2C 53.0 % LV Ejection Fraction 2C AL 55.9 % LA Diameter 4.4 cm LA Width 3.1 cm LA Height 5.1 cm RA Width 3.6 cm RA Height 5.1 cm Aorta at Sinotubular Diameter 3.3 cm IVC Diameter 1.7 cm M-MODE Aortic Annulus Diameter 3.5 cm LA Ao Ratio MM 1.2 MV E Point Septal Separation 0.6 cm DOPPLER AV Peak Velocity 134.0 cm/s LVOT Peak Velocity 64.0 cm/s AV Area Cont Eq vti 2.5 cm squared AV Area Cont Eq pk 2.0 cm squared MV Area PHT 2.3 cm squared Mitral E to A Ratio 1.3 MV E' Velocity 43.0 cm/s Mitral E to MV E' Ratio 10.1 Mitral E to LV E' Lateral Ratio 11.5 Mitral E to LV E' Septal Ratio 8.9 TR Peak Velocity 218.0 cm/s TR Peak Gradient 19.0 mmHg TV Peak E Velocity 52.0 cm/s Right Atrial Pressure 5.0 mmHg Pulmonary Artery Systolic Pressu 24.0 mmHg PV Peak Velocity 103.0 cm/s RV Acceleration Time 0.1 s RV Ejection Time 0.4 s RV AcT/ET 0.3 FINDINGS Left Ventricle Moderate diffuse hypokinesia of the inferolateral segment. Overall LV ejection fraction 45 to 50%(visual) Right Ventricle Normal right ventricular systolic function. Right Atrium Normal right atrial size. Left Atrium Upper limit of normal size Mitral Valve No gross abnormalities noted Aortic Valve No gross abnormalities noted Tricuspid Valve No gross abnormalities noted.trace tricuspid valve regurgitation. Estimated pulmonary artery peak systolic pressure 24 mmHg Pulmonic Valve Pulmonic valve not well visualized. Pericardium No pericardial effusion. Aorta Normal aortic annulus size. IVC Inferior vena cava not visualized. CONCLUSIONS Normal LV size with a slightly diminished ejection fraction of 45 to 50% Wall motion of normality as mentioned above. Left atrium, upper limit of normal size Trace tricuspid valve regurgitation. Estimated pulmonary artery peak systolic pressure 24 mmHg No intracardiac masses No pericardial effusion No significant stenotic or regurgitant lesions. No similar previous studies are available for comparison Dr Mike Wheeler MD FAC (Electronically Signed) Final Date: 13 December 2021 20:30 S
[2021-12-13] MEDS: atorvastatin 40 mg Tablet 20 MG PO (18:19)
[2021-12-13] MEDS: metoprolol tartrate 25 mg Tablet PO (18:19)
--- NOTE | 2021-12-13 19:00 | PC.NURSE ---
Bedside report complete with nurse Robin RN. Patient sitting on side of bed with daughter at bedside. All questions and concerns answered. Patient informed of scheduled tests. All labs, tests, and plan of care discussed in report.
[2021-12-13] MEDS: enoxaparin 100 mg/mL Syringe SUBCUT (19:46)
[2021-12-13] MEDS: nicotine 21 mg Patch 1 PATCH TRANSDERMA (21:19)
[2021-12-13] MEDS: trazodone 50 mg Tablet 25 MG PO (21:19)
[2021-12-14] VITALS (36 sets, daily range): BP systolic 100–182; BP diastolic 48–96; PULSE 52–70; RESP 13–33; TEMP 36.6; O2SAT 89–100
--- NOTE | 2021-12-14 04:15 | PC.NURSE ---
Blood pressure trending up. Currently 182/96. Dr. Wiley notified with order for Amlodipine 5mg po ONCE NOW to be given.
[2021-12-14] MEDS: amlodipine 5 mg Tablet PO ×2 (04:30→09:39)
[2021-12-14] MEDS: sodium chloride 0.9% 1,000 ML 50 ML IV (05:22)
[2021-12-14] MEDS: diphenhydrAMINE 25 mg Capsule PO (05:22)
[2021-12-14] MEDS: perflutren protein-a microsphr 0.22 mg/mL SDV 3 mL IV (05:53)
--- NOTE | 2021-12-14 06:00 | PC.NURSE ---
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 Right radial and right femoral have been shaved and cleansed to chlorhexadine. Clean gown and non-slip socks applied. Benadryl administered and normal saline 50ml/hr infusion stated at 0530 per physicians orders. Patient NPO since midnight.
--- NOTE | 2021-12-14 07:00 | XACV_ITS ---
Exam Room: [facility] Ht: 183 cm Wt: 105 kg BSA: 2.34 m2 Gender: Male : 1960 Any Known Allergies: No known allergies Exam Priority: Routine Procedure(s): Procedure Description: Diagnostic procedure Procedure Description: Left Heart Catheterization Procedure Description: Left ventriculography Procedure Description: Coronary Angiography Procedure Description: Pressure Wire Liam FRANZ; Diagnostic Cath Status: Elective Diagnostic Findings * The left main is a medium caliber vessel relative was found to have around 20% eccentric narrowing distally. Minimal calcification was noted in the left main. * The left anterior descending artery is a medium caliber vessel which was found to be wrapping around the LV apex minimally. Mild to moderate diffuse calcification was noted in the proximal of the mid segment of the artery. Mild diffuse intimal irregularities were noted throughout the vessel.. The first diagonal branch was found to have around 30% stenosis proximally. * The left circumflex artery is a medium caliber vessel which was found to have an ostial narrowing of around 50%. The mid segment of the artery was found to have around 30% diffuse narrowing. Mild to moderate diffuse calcification was noted in the proximal to mid segment of the artery. No significant stenotic lesions were noted. The artery appears to gives off a high obtuse marginal branch which also was found to have mild diffuse disease. * The right coronary artery is a medium caliber dominant vessel which also was found to have mild to moderate diffuse calcification in the proximal and mid segment of the artery. The proximal segment of the artery was found to have 20 to 30% eccentric diffuse narrowing. No other significant stenotic lesions were noted. Interventional Findings * Procedure detail: We engaged left main artery with XB 3.5 guide catheter. IV heparin was administered to maintain ACT above 250 S. iFR wire was advanced to distal left circumflex artery after normalization. iFR value of 0.98 was obtained. As it was nonischemic, medical therapy was decided. Guidewire and guide catheter were removed. Patient left the Resident Care Spec in stable condition. Conclusions 1. 61-year-old white male with a history of hypertension and dyslipidemia, presenting with complaints of chest pain and shortness of breath. Abnormal Myocardial perfusion imaging revealing ischemia in the inferolateral wall region. In view of the patient's presenting symptoms and abnormal objective findings, in order to further evaluate his coronary status, a cardiac catheterization was recommended. His LV ejection fraction was 39% by the nuclear scan. The echocardiogram revealed ejection fraction of 45 to 50%. The findings are as follows. 2. Mild to moderate diffuse coronary artery disease, including left main. 50% ostial stenosis in the circumflex artery. Mild to moderate diffuse coronary calcification. LVEDP of 25 mmHg. LV ejection fraction 35 to 40%. Mildly dilated LV cavity with diffuse hypokinesia. 3. In view of the abnormal perfusion scan, in order to better evaluate the functional significance of the ostial circumflex artery lesion, it is thought to be appropriate to do an IFR. Dr. Forrester performed IFR. It was within normal limits. Recommendations * Aggressive risk factor modification. * Guideline directed medical therapy for heart failure. * Outpatient cardiology follow-up in 4 weeks. Diagnostic RX Recommendation: medical therapy and/or counseling Anticoagulation: Heparin Ventriculography Ejection Fraction: 35.0 % LV EDP: 25 mmHg Left Ventriculography Findings: * The LV gram was performed in the GÓMEZ projection. The LV cavity appears to be mildly dilated. Diffuse hypokinesia left-ventricular was noted with an ejection fraction of 35 to 40%. There was no filling defect. No significant mitral valve prolapse or mitral regurgitation were noted. Pressures Phase:Rest AO : 148 / 72 ( 99 ) @ 9:19:00 AM 173 / 78 ( 113 ) @ 9:31:00 AM 172 / 77 ( 113 ) @ 9:31:00 AM LV : 177 / 7 / 25 @ 9:29:00 AM 176 / 10 / 27 @ 9:31:00 AM 176 / 10 / 29 @ 9:31:00 AM Valves Phase:DefaultPhase AV : 6.0 @ 8:55:04 AM AV Mean Gradient: 10.0 @ 8:55:04 AM Clinical Evaluation EBL: 5mL-10mL Procedural Details Procedure Consent Obtained. Admit Source: In Patient. Pre-Procedure Time Out. Identified patient by full name and date of as verbalized by the patient/guarantor. Does the consent match the physician's order: Yes. Accurate & Complete Informed Consent: Yes. Inpatient/Outpatient History & Physical on Chart: Yes. If H&P is completed, is and addenduem needed: No; If yes, is the addendum complete: N/A. Visualize and Verify Site with Patient/Guarantor: N/A. Relevant Radiology Images available: N/A. The risks, benefits, and alternatives of sedation and/or procedure were discussed by physician. The patient agrees to continue. Procedure started. [facility] Clinical Fraility Score: 3: Managing Well. Resident Care Spec Indications: Worsening Angina. Chest Pain Symptom Assessment: Typical Angina Symptoms. Correct patient, site and procedure confirmed by cath team. Current diagnosis: Chest Pain, Abnormal stress test. PERRLA. Strong, equal hand pattern molder bilaterally. Lungs clear x 5 lobes. IV Site on Arrival: 20 gauge in the left wrist. IV Fluids: 0.9% NaCl at 75ml/hr. 150 mL infused prior to car barn laborer. Pre Procedural Pulses: bilateral radial was 3+. Pre Procedural Pulses: bilateral dorsalis pedis was 3+. Pre Procedural Pulses: bilateral posterior tibial was 2+. Oxygen started at 2liters/min via nasal canula. right radial was prepped with chloroprep then draped in the usual sterile fashion. right groin was prepped with chloroprep then draped in the usual sterile fashion. Physician notified. Baseline sample Acquired. HR: 55 BPM. Physician arrived. Physician scrubbed in. Immediate Pre-Procedure Time Out. Correct Patient: Yes; Correct Procedure: Yes; Correct Site: Yes; Correct Patient Position: Yes; Correct Supplies: Yes; Dried Flammable Prep: Yes; Blood Products Available: No;. Lidocaine 1% infiltrated to the right radial. Arterial access obtained. A 5 nicaraguan Robin catheter in over exchange wire. Exchange wire out. Multiple views taken of left coronary artery. Catheter redirected to the RCA. Catheter removed over the exchange wire. A 5 nicaraguan JR4 catheter in over wire. Multiple views taken of right coronary artery. Catheter removed over the exchange wire. A 5 nicaraguan Angled Pig catheter in over wire. EDP Sample taken: LV 177/7,25; HR: 68 BPM; SpO2: 98%. LV gram performed in GÓMEZ @ 10 mL/second for a total of 30 mL. EDP Sample taken: LV 176/10,27; HR: 64 BPM; SpO2: 100%. Pullback taken: LV 176/10,29; AO 173/78(113); Mean: 10mmHg, Peak to Peak: 6mmHg, SEP: 16sec/min; HR: 63 BPM; SpO2: 100%. Catheter removed over the exchange wire. Patient's family updated. Dr. Forrester to car barn laborer to review cine films. Physician scrubbed out. Dr. Forrester scrubbed in to perform intervention. 6 nicaraguan XB 3.5 guide catheter was inserted over the exchange wire. Exchange wire out. IFR pressure guide wire in through guide catheter, advanced distal to lesion in ostial circumflex. IFR ostial circumflex 0.98. IFR pressure wire out. Guide catheter out. A TR Band was successful obtaining hemostatsis at the Right Radial artery insertion site. Post Procedure: Pulses reassessed and unchanged. PERRLA. Strong, equal hand pattern molder bilaterally. No VTE prophylaxis required. Medication's Wasted: Lidocaine 1% = 2 mL. Medication's Wasted: Heparin = 3000 units. Medication's Wasted: Nitro = 49.8 mg. Medication's Wasted: Other = Versed 1 mg. Medication's Wasted: Other = Fentanyl 50 mcg. Total IV fluids: 63 mL. Post-op diagnosis: Moderate Ostial Left circumflex stenosis, IFR ostial circumflex non-ischemic. Complications: None. Estimated blood loss: 5mL-10mL. Responsiveness - Normal response to verbal stimuli; alert and oriented, PERRLA. Airway - Unaffected, no intervention required; spontaneous ventilation. Circulation: W/N/L, pulses unchanged. Nausea/Vomiting: N/A. Procedure completed. Patient transferred by wheelchair to ICU. Vital chart was stopped. Access Site Site: Right Radial artery Sheath Size: 6 Fr Hemostasis Method: TR Band Hemostasis Success: Successful Procedure Medications Start: 8:03 AM Stop: 8:03 AM Medication: Fentanyl Amount: 50 mcg Route: I.V. Start: 8:08 AM Stop: 8:08 AM Medication: Versed Amount: 1 mg Route: I.V. Start: 8:08 AM Stop: 8:08 AM Medication: Fentanyl Amount: 50 mcg Route: I.V. Start: 8:13 AM Stop: 8:13 AM Medication: Versed Amount: 1 mg Route: I.V. Start: 8:15 AM Stop: 8:15 AM Medication: Verapamil Amount: 5 mg Route: I.A. Start: 8:16 AM Stop: 8:16 AM Medication: Nitrogylcerin Amount: 200 mcg Route: I.A. Start: 8:18 AM Stop: 8:18 AM Medication: Heparin Amount: 5000 units Route: I.V. Start: 8:36 AM Stop: 8:36 AM Medication: Versed Amount: 1 mg Route: I.V. Start: 8:36 AM Stop: 8:36 AM Medication: Fentanyl Amount: 50 mcg Route: I.V. Start: 8:45 AM Stop: 8:45 AM Medication: Heparin Amount: 3000 units Route: I.V. I, the attending physician, have reviewed and verified all procedure medications. Yes, all medications given per verbal order History/Risk Factors Hypertension: Yes Dyslipidemia: Yes Peripheral Arterial Disease (PAD): No Myocardial Infarction (DC): No Obesity: Yes Renal Disease: No Prior Interventions PCI: No CABG: No Valve Surgery: No Report Signatures Interventional Workflow Finalized by Saroj Forrester MD on 12/16/2021 09:49 PM Diagnostic Workflow Finalized by Dr Mike Wheeler MD [facility] on 12/14/2021 11:50 AM
--- NOTE | 2021-12-14 07:26 | PC.NURSE ---
to blood bank laboratory technologist per wheelchair at this time
--- NOTE | 2021-12-14 08:40 | W.PM.OPSUD ---
Surgery/Procedure H&P Update DATE OF PROCEDURE: December 14, 2021 DATE H&P PERFORMED: 12/13/21 H&P UPDATE INFORMATION: I have reviewed H&P completed within last 30 days, I have examined patient prior to procedure and No changes to prior documentation PREOP DIAGNOSIS: ASHD/ cardiomyopathy PRIMARY INDICATION FOR PROCEDURE: unstable angina/ HTN/ dyslipidemia/abnormal stress test PLANNED PROCEDURE: Operation Date: 12/14/21 11:00 Proposed Procedures p Cardiac Catheterization(Left) - Mike Wheeler MD Operation Date: 12/14/21 12:00 Proposed Procedures p Cardiac Catheterization(Left) - Mike Wheeler MD PATIENT REASSESSED PRIOR TO SEDATION, WITH NO CHANGE NOTED: Yes PHYSICAL EXAM: alert, oriented x 3, clear to auscultation bilaterally and regular rate & rhythm AIRWAY EVAL/ANESTHESIA PLAN: normal airway, see other exam findings, ASA II, Monitored Anesthesia, Local Anesthesia, Risks, benefits & alternatives of sedation and/or procedure discussed and Patient agrees to continue as planned
[2021-12-14] MEDS: metoprolol tartrate 25 mg Tablet PO (09:39)
[2021-12-14] MEDS: hydroxychloroquine 200 mg Tablet PO (09:39)
[2021-12-14] MEDS: isosorbide mononitrate ER 30 mg Tablet PO (09:39)
--- NOTE | 2021-12-14 09:56 | PC.NURSE ---
post cath removing air from tr band no distress at this time
--- NOTE | 2021-12-14 10:29 | PC.NURSE ---
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 I told him the chemical. He then said do you know you are radiating everyone in the room because you had a stress test today and I should not be doing this because of your nuclear test today but the doctor order it. This nurse apologized for co-worker behavior and let Patient know that This nurse would take it over from here patient agreed to plan and was calm. Patient family at bedside and confirms patient concerns.
--- NOTE | 2021-12-14 10:46 | P.PN_ITS ---
Subjective Subjective: Patient underwent a cardiac catheterization this morning. He was found to have mild to moderate diffuse coronary artery disease and coronary calcification. The left relative was found to have diffuse hypokinesia and dilatation. LV ejection fraction around 35 to 40%. Medications: Medication Review Details: Current Medications Acetaminophen (Acetaminophen 325 Mg Tablet) 650 mg PO Q6H PRN PRN Reason: Mild/Mod Pain Or Temp >/= 101 Amlodipine Besylate (Amlodipine 5 Mg Tablet) 5 mg PO DAILY [facility] Last Admin: 12/14/21 09:39 Dose: 5 mg Atorvastatin Calcium (Atorvastatin 40 Mg Tablet) 20 mg PO QPM [facility] Last Admin: 12/13/21 18:19 Dose: 20 mg Hydroxychloroquine Sulfate (Hydroxychloroquine 200 Mg Tablet) 200 mg PO DAILY [facility] Last Admin: 12/14/21 09:39 Dose: 200 mg Sodium Chloride (Sodium Chloride 0.9%) 1,000 mls @ 50 mls/hr IV .Q20H [facility] Stop: 12/15/21 01:59 Last Admin: 12/14/21 05:22 Dose: 50 mls/hr Isosorbide Mononitrate (Isosorbide Mononitrate Er 30 Mg Tablet) 30 mg PO DAILY [facility] Last Admin: 12/14/21 09:39 Dose: 30 mg Losartan Potassium (Losartan 50 Mg Tablet) 50 mg PO DAILY [facility] Metoprolol Tartrate (Metoprolol Tartrate 25 Mg Tablet) 25 mg PO BID@0900,2100 [facility] Last Admin: 12/14/21 09:39 Dose: 25 mg Nicotine (Nicotine 21 Mg Patch) 1 patch TRANSDERMA Q24H [facility] Last Admin: 12/13/21 21:19 Dose: 1 patch Nicotine Polacrilex (Nicotine 4 Mg Lozenge) 4 mg MUCOUS MEM Q2H PRN PRN Reason: NICOTINE CRAVINGS Nitroglycerin (Nitroglycerin 0.4 Mg Sublingual Tablet) 0.4 mg SUBLINGUAL Q5M PRN PRN Reason: CHEST PAIN Spironolactone (Spironolactone 25 Mg Tablet) 25 mg PO DAILY [facility] Trazodone HCl (Trazodone 50 Mg Tablet) 25 mg PO BEDTIME [facility] Last Admin: 12/13/21 21:19 Dose: 25 mg Vitals/I&O/Wt Last Vital Signs Temp 97.8 F 12/13/21 21:18 Pulse 60 12/14/21 09:30 Resp 18 12/14/21 09:30 BP 145/78 12/14/21 09:30 Pulse Ox 94 12/14/21 09:30 O2 Del Method 12/14/21 08:00 12/13/21 12/14/21 12/14/21 22:59 06:59 14:59 Intake Total 840 / 840 250 / 250 Output Total 400 / 400 Balance 440 / 440 250 / 250 Weight last 48 hrs Weight 232 lb 5 oz Physical Exam Narrative: GENERAL: The patient is alert and oriented times three. Not in any acute distress. HEENT: No significant pallor, icterus or lymphadenopathy.Oral cavity: There are no mucous membrane lesions. NECK: Trachea appears to be central. No masses noted. No JVD or thyromegaly appreciated. RESPIRATORY: Chest is symmetrical. No intercostals muscle retraction or any accessory muscle activation. There is no chest wall tenderness. Breath sounds are heard bilaterally. No rales or rhonchi heard. No evidence of any consolidation. BREASTS: Deferred. HEART: The heart sounds are normal. No S3 or S4. No significant murmurs. No pericardial rub ABDOMEN: No vessel pulsations or distention. No tenderness. No organomegaly appreciated. Bowel sounds are normally heard. : Deferred. RECTAL: Deferred. LYMPHATIC: No lymphadenopathy noted in the neck. EXTREMITIES: No edema or cyanosis. No clubbing. The radial arterial puncture site has no hematoma or bleeding. MUSCULOSKELETAL: No acute joint deformities or swelling SKIN: There are no significant rashes or ecchymosis NEUROPSYCHIATRIC: The patient is alert and oriented x3. Appears to be in a good mood. No tremors or rigidity noted. Data : 12/12/21 08:45 12/12/21 10:19 Other Labs: Laboratory Last Values WBC 9.5 10^3/uL (4.0-10.0) 12/12/21 08:45 RBC 5.11 10^6/uL (4.1-5.3) 12/12/21 08:45 Hgb 16.1 g/dL (11.7-16.6) 12/12/21 08:45 Hct 46.5 % (42.0-52.0) 12/12/21 08:45 MCV 91.0 fl (80-94) 12/12/21 08:45 MCH 31.5 pg (28.0-34.0) 12/12/21 08:45 MCHC 34.6 g/dL (30.0-36.0) 12/12/21 08:45 RDW 13.3 % (12.1-15.1) 12/12/21 08:45 Plt Count 248 10^3/cmm (130-400) 12/12/21 08:45 MPV 10.5 fL (7.4-10.4) H 12/12/21 08:45 Neut % (Auto) 70.5 % 12/12/21 08:45 Lymph % (Auto) 19.5 % 12/12/21 08:45 [place] % (Auto) 7.3 % 12/12/21 08:45 Eos % (Auto) 1.5 % 12/12/21 08:45 Baso % (Auto) 0.8 % 12/12/21 08:45 Neut # (Auto) 6.71 10^3/uL (1.8-7.7) 12/12/21 08:45 Lymph # (Auto) 1.9 10^3/uL (0.8-4.8) 12/12/21 08:45 [place] # (Auto) 0.7 10^3/uL (0.2-0.9) 12/12/21 08:45 Eos # (Auto) 0.1 10^3/uL (0.0-0.8) 12/12/21 08:45 Baso # (Auto) 0.1 10^3/uL (0.0-0.1) 12/12/21 08:45 Nucleated RBC % (auto) 0 % 12/12/21 08:45 Nucleated RBCs # 0.0 /100WBC 12/12/21 08:45 D-Dimer <= 0.27 ug/mIFEU (0-0.59) 12/12/21 08:45 Sodium 138 mmol/L (136-145) 12/12/21 10:19 Potassium 4.1 mmol/L (3.5-5.1) 12/12/21 10:19 Chloride 104 mmol/L (98-107) 12/12/21 10:19 Carbon Dioxide 22 mmol/L (22-29) 12/12/21 10:19 Anion Gap 16.1 (5-19) 12/12/21 10:19 BUN 6 mg/dL (6-20) 12/12/21 10:19 Creatinine 0.7 mg/dL (0.7-1.2) 12/12/21 10:19 GFR Calculation 115.4 mL/min (90-130) 12/12/21 10:19 Glucose 96 mg/dL (65-115) 12/12/21 10:19 Calculated Osmolality 283 mOsm/kg (285-295) L 12/12/21 10:19 Calcium 9.1 mg/dL (8.5-10.5) 12/12/21 10:19 Total Bilirubin 0.3 mg/dL (0.15-1.2) 12/12/21 10:19 AST 16 U/L (0-40) 12/12/21 10:19 ALT 12 U/L (0-41) 12/12/21 10:19 Alkaline Phosphatase 90 U/L (40-130) 12/12/21 10:19 Creatine Kinase 88 U/L (39-308) 12/12/21 12:00 Troponin T Baseline 10 ng/L (0-15) 12/12/21 08:45 Troponin T 120 Minute 10.04 ng/L (0-15) 12/12/21 10:19 Delta Troponin T 0.04 ABS# (0-10) 12/12/21 10:19 Troponin T Hi Sens 6Hr 8.67 ng/L (0-15) 12/12/21 14:50 Troponin T Hi Sens 6Hr Delta -1.33 ng/L (0-12) L 12/12/21 14:50 NT-Pro-B Natriuret Pep 85 pg/mL (0-125) 12/12/21 12:00 Total Protein 7.1 g/dL (6.6-8.7) 12/12/21 10:19 Albumin 3.8 g/dL (3.5-5.2) 12/12/21 10:19 Globulin 3.3 g/dL (1.3-4.6) 12/12/21 10:19 Coronavirus 229E (PCR) Not detected (NOT DETECT) 12/12/21 13:55 SARS-CoV-2 (PCR) Not detected (NOT DETECT) 12/12/21 13:55 A&P Assessment and plan (1) Atherosclerotic heart disease of [place] coronary artery with other forms of angina pectoris: Patient has mild to moderate diffuse coronary artery disease and coronary calcification. Based on the angiogram findings, we will try to optimize the risk modifying measures. (2) Nonischemic dilated cardiomyopathy: Since he has no evidence of any congestive heart failure, we will optimize the afterload reducing measures. I may start him on losartan 50 mg p.o. daily for further control of his blood pressure as well as for the systolic dysfunction. Also may start him on spironolactone 25 mg p.o. daily. (3) Chest pain: Since the patient has no significant obstructive coronary artery disease, we will optimize his medical treatment. He may be continued on the nitrates. (4) Benign essential hypertension with target blood pressure below 140/90: We will continue to optimize his antihypertensive medications. (5) Dyslipidemia: Patient is on atorvastatin. This may be continued. (6) Smoking addiction: Patient strongly advised to quit smoking. Also advised to keep area from the caffeine containing products. Plan If he continues to remain stable, may be discharged home today. Will continue on the above medications. [facility]ointment [facility] next week to be seen by nurse practitioner. I may see him in the office in a month. We will consider starting him on Entresto at the time of the clinic visit Attestations Medical Necessity Statement*: Possible discharge home today Coding Level of Care Code Acute Medical Administrative Assistant for Dayanara Fwd History Expanded Problem Focused Exam Expanded Problem Focused Medical Decision Making Moderate Complexity Diagnoses Atherosclerotic heart disease of [place] coronary artery with other forms of angina pectoris I25.118 Nonischemic dilated cardiomyopathy I42.0 Chest pain R07.9 Benign essential hypertension with target blood pressure below 140/90 I10 Dyslipidemia E78.5 Smoking addiction F17.200
--- NOTE | 2021-12-14 11:46 | PC.CHAP ---
Pastoral Care Encounter/Spiritual Assessment Type of Contact [] Declined electrical and instrument technician visit [] Patient/Family/Request visit [] Outpatient visit [] Follow-up visit [] Physician referral [] Code/Alert [x] Routine visit [] Staff referral [] Actively dying [] Patient sleeping [] Family support [] [] Out of room [] Palliative care [] [] Receiving care in room [] Pre-surgical visit [] Trauma [] Long length of stay [x] ICU visit [] Other: Relational/Emotional Strength [] Patient feels connected with others/family/visitors/staff [] Distress [] Loneliness/isolation [] Abandonment Spirituality of Patient [] Person of Darlene [] Attends Adventism of their Darlene [] Believes in Prayer [] Reads Bible or Buddhist materials [] There are Spiritual issues to be addressed Associate Director Finance Interventions [x]Prayer [] Active listening [] Non-anxious presence [] Spiritual/emotional support [] Crisis/trauma care [] Spiritual counseling [] Bereavement support [] Provided bereavement packet [] Provided Bible/devotional materials [] Provided toy/stuffed animal, coloring book to patient or family member [] Provided Communion [] Anointing/[place] [] Salvation [x] Completed spiritual assessment [] Other: Impact on Illness or Injury [] Angry [] Fearful [] Anxious [] Often cries [] Exhaustion [] Unable to work [] Unable to attend judaism [] Unable to walk/stand [] Unable to read [] Unable to drive [] Unable to eat/drink [] Unable to sleep [] Unable to be with family [] Patient intubated [] Other: Summary Time spent with patient
--- NOTE | 2021-12-14 11:55 | PM.DCS ---
Discharge Providers Date of Admission: 12/12/21 18:20 Date of Discharge: December 14, 2021 Attending Provider at Admission: David Hui Attending Provider at Discharge: David Hui Primary Care Provider: ALEX Singh Diagnoses at Discharge Discharge Diagnosis (1) Atherosclerotic heart disease of [place] coronary artery with other forms of angina pectoris: Status: Acute (2) Nonischemic dilated cardiomyopathy: Status: Acute (3) Chest pain: Status: Acute (4) Benign essential hypertension with target blood pressure below 140/90: Status: Acute (5) Dyslipidemia: Status: Acute (6) Smoking addiction: Status: Acute (7) Abnormal nuclear cardiac imaging test: Status: Acute (8) Abnormal chest xray: Status: Acute Reason for Visit Reason for Visit: Chest Pain Hospital Course Hospital Course Pleasant 61-year-old gentleman was admitted after progressively more bothersome episodes of chest pain, initially with significant exertion, subsequently with even minimal exertion walking to his truck, associated also with easy fatigability, with past history of smoking, HTN, HLD, spondyloarthropathy, was kept in the hospital for additional assessment. His vital signs and laboratory work-up largely unremarkable. D-dimer not elevated. Troponin series also without elevation. EKG with some ST depression. He underwent additional assessment with stress test which was abnormal revealing moderate area of moderate to severely decreased tracer uptake in inferior, inferolateral and apical regions with significant visibility suggestive of myocardial scarring with ischemia in the distribution of RCA and LCx. Diminished EF 39%. On echocardiogram noted newly decreased EF, around 45%. Additionally assessed by cardiology, underwent coronary angiography which showed mild to moderate diffuse coronary disease without focal occlusion, but again with noted decreased EF around 38%. Diagnosed with nonischemic dilated cardiomyopathy, etiology at this time unclear, although has had COVID-19 in recent past, and may have been the trigger. Of note additionally seen nonspecific imaging findings on chest x-ray with mild pulmonary congestion or pneumonia, although without symptoms of pneumonia, remained afebrile, without leukocytosis, without cough, shortness of breath, saturating in mid 90s on room air. BNP not elevated, does not appear fluid overloaded at this time. He overall reports is feeling better, has not had any recurrence of chest pain, he is wanting to discharge from the hospital. At discharge his medications are optimized by cardiology and he is started on losartan, spironolactone, Imdur, aspirin, statin is changed to atorvastatin 40 mg. Nitroglycerin as needed. He is asked to follow-up with cardiology in office for reassessment. Please note, although not, on hydroxychloroquine which he takes for spondyloarthropathy and rare cases have been reported to cause cardiomyopathy. This was discussed with cardiology and he is asked to discuss regarding this medication with his supervisor counseling and guidance to see if there is potentially an alternative. Please also follow-up chest x-ray for resolution of pulmonary findings, possibly transient pulm edema, versus some scarring which may be chronic after COVID-19, however, please keep in mind also possibility of autoimmune related ILD. In case of any persistent respiratory symptoms consider further evaluation with PFT, referral to pulmonology. He is asked to discuss cardiomyopathy with his supervisor counseling and guidance. Please assist him also with optimizing cardiovascular risk, although no occlusion noted as mentioned mild to moderate coronary disease is present. Continue to optimize cardiovascular risk factor please. Please encourage smoking cessation. Continue optimization of HTN, HLD, diet, lifestyle. Physical Exam Const: COMMON NORMALS: patient oriented x3 and alert GENERAL APPEARANCE: cooperative NUTRITIONAL APPEARANCE: overweight ORIENTATION/CONSCIOUSNESS: Yes awake HENMT: COMMON NORMALS: oropharynx normal Neck/C-Spine: COMMON NORMALS: no JVD Resp: COMMON NORMALS: normal respiratory effort and clear to auscultation bilaterally AUSCULTATION: clear to auscultation bilaterally Cardio: COMMON NORMALS: no JVD, regular rhythm, S1 normal heart sound present, S2 normal heart sound present and No murmurs present (Cardio) RHYTHM: regular rhythm HEART SOUNDS: S1 normal heart sound present and S2 normal heart sound present GI: COMMON NORMALS: Normal to inspection, nondistended, normoactive bowel sounds present, Soft to palpation and non-tender PALPATION: Yes Soft to palpation Extremity: COMMON NORMALS: no joint enlargement and no pedal edema Neuro: COMMON NORMALS: patient oriented x3 and moves all extremities SENSORIUM/ORIENTATION: Yes alert Skin: COMMON NORMALS: no rashes or lesions noted GENERAL SKIN EXAM: no rashes or lesions noted Discharge Data Studies Completed and Pending Completed Studies During Hospitalization Category Date Time Status Cardiac Stress Test Request Routine Exams 12/13/21 06:00 Draft XR chest 1V portable [id number] Stat Exams 12/12/21 08:52 Completed NM mibi [NM fazal perf SPECT r/s* 10186] Routine Nuc Med 12/13/21 06:00 Completed CV. echo wo/w contrast [id number] Stat Ultrasound 12/13/21 18:06 Completed Pending at discharge Category Date Time Status HEDIS COORDINATOR request for service Routine Exams 12/14/21 07:00 Ordered Radiology Impressions Chest X-Ray 12/12/21 08:52 IMPRESSION: Nonspecific imaging findings, which can be seen with mild pulmonary congestion or pneumonia. Clinical correlation is recommended. Laboratory Results WBC 9.5 10^3/uL (4.0-10.0) 12/12/21 08:45 RBC 5.11 10^6/uL (4.1-5.3) 12/12/21 08:45 Hgb 16.1 g/dL (11.7-16.6) 12/12/21 08:45 Hct 46.5 % (42.0-52.0) 12/12/21 08:45 MCV 91.0 fl (80-94) 12/12/21 08:45 MCH 31.5 pg (28.0-34.0) 12/12/21 08:45 MCHC 34.6 g/dL (30.0-36.0) 12/12/21 08:45 RDW 13.3 % (12.1-15.1) 12/12/21 08:45 Plt Count 248 10^3/cmm (130-400) 12/12/21 08:45 MPV 10.5 fL (7.4-10.4) H 12/12/21 08:45 Neut % (Auto) 70.5 % 12/12/21 08:45 Lymph % (Auto) 19.5 % 12/12/21 08:45 [place] % (Auto) 7.3 % 12/12/21 08:45 Eos % (Auto) 1.5 % 12/12/21 08:45 Baso % (Auto) 0.8 % 12/12/21 08:45 Neut # (Auto) 6.71 10^3/uL (1.8-7.7) 12/12/21 08:45 Lymph # (Auto) 1.9 10^3/uL (0.8-4.8) 12/12/21 08:45 [place] # (Auto) 0.7 10^3/uL (0.2-0.9) 12/12/21 08:45 Eos # (Auto) 0.1 10^3/uL (0.0-0.8) 12/12/21 08:45 Baso # (Auto) 0.1 10^3/uL (0.0-0.1) 12/12/21 08:45 Nucleated RBC % (auto) 0 % 12/12/21 08:45 Nucleated RBCs # 0.0 /100WBC 12/12/21 08:45 D-Dimer <= 0.27 ug/mIFEU (0-0.59) 12/12/21 08:45 Sodium 138 mmol/L (136-145) 12/12/21 10:19 Potassium 4.1 mmol/L (3.5-5.1) 12/12/21 10:19 Chloride 104 mmol/L (98-107) 12/12/21 10:19 Carbon Dioxide 22 mmol/L (22-29) 12/12/21 10:19 Anion Gap 16.1 (5-19) 12/12/21 10:19 BUN 6 mg/dL (6-20) 12/12/21 10:19 Creatinine 0.7 mg/dL (0.7-1.2) 12/12/21 10:19 GFR Calculation 115.4 mL/min (90-130) 12/12/21 10:19 Glucose 96 mg/dL (65-115) 12/12/21 10:19 Calculated Osmolality 283 mOsm/kg (285-295) L 12/12/21 10:19 Calcium 9.1 mg/dL (8.5-10.5) 12/12/21 10:19 Total Bilirubin 0.3 mg/dL (0.15-1.2) 12/12/21 10:19 AST 16 U/L (0-40) 12/12/21 10:19 ALT 12 U/L (0-41) 12/12/21 10:19 Alkaline Phosphatase 90 U/L (40-130) 12/12/21 10:19 Creatine Kinase 88 U/L (39-308) 12/12/21 12:00 Troponin T Baseline 10 ng/L (0-15) 12/12/21 08:45 Troponin T 120 Minute 10.04 ng/L (0-15) 12/12/21 10:19 Delta Troponin T 0.04 ABS# (0-10) 12/12/21 10:19 Troponin T Hi Sens 6Hr 8.67 ng/L (0-15) 12/12/21 14:50 Troponin T Hi Sens 6Hr Delta -1.33 ng/L (0-12) L 12/12/21 14:50 NT-Pro-B Natriuret Pep 85 pg/mL (0-125) 12/12/21 12:00 Total Protein 7.1 g/dL (6.6-8.7) 12/12/21 10:19 Albumin 3.8 g/dL (3.5-5.2) 12/12/21 10:19 Globulin 3.3 g/dL (1.3-4.6) 12/12/21 10:19 Coronavirus 229E (PCR) Not detected (NOT DETECT) 12/12/21 13:55 SARS-CoV-2 (PCR) Not detected (NOT DETECT) 12/12/21 13:55 Vitals Last Vital Signs Temp 97.8 F 12/13/21 21:18 Pulse 60 12/14/21 11:30 Resp 18 12/14/21 11:30 BP 145/78 12/14/21 09:30 Pulse Ox 94 12/14/21 09:30 O2 Del Method 12/14/21 11:30 Discharge Plan Discharge Patient Disposition: Home Condition: Stable Prescriptions: New isosorbide mononitrate 30 mg tablet extended release 24 hr 30 mg PO DAILY Qty: 30 0RF aspirin 81 mg tablet,delayed release (DR/EC) 81 mg PO DAILY Qty: 30 0RF nitroglycerin 0.4 mg tablet, sublingual 0.4 mg sublingual Q5M PRN (Reason: chest pain) Qty: 30 1RF Rx Instructions: do not exceed 3 doses per episode losartan 50 mg Tablet 50 mg PO DAILY 30 Days Qty: 30 0RF spironolactone 25 mg Tablet 25 mg PO DAILY 30 Days Qty: 30 0RF atorvastatin 40 mg Tablet 20 mg PO QPM Qty: 30 0RF amlodipine 5 mg Tablet 5 mg PO DAILY 30 Days Qty: 30 0RF Continued (DME) custom orthotics with ayala's extension on right foot See Rx Instructions .Route .MEDSUPPLY Qty: 1 0RF Rx Instructions: As directed by ADIS&O hydroxychloroquine 200 mg tablet 200 mg PO DAILY amlodipine 5 mg tablet 5 mg PO DAILY (DME) custom orthotics with ayala's extension on right foot See Rx Instructions .Route .MEDSUPPLY Qty: 1 0RF Rx Instructions: As directed vitamin B complex Tablet 1 tab PO DAILY Prevagen 1 tab PO DAILY Discontinued potassium citrate 10 mEq (1,080 mg) tablet extended release 10 meq PO DAILY lisinopril 40 mg tablet 20 mg PO DAILY pravastatin 80 mg Tablet 80 mg PO QPM potassium citrate 10 mEq (1,080 mg) Tablet Extended Release 10 meq PO DAILY PRN (Reason: kidney stones) Discharge Orders: Discharge Order (Routine); Ordered 12/14/21 Ordered By: David Hui Referrals: Mike Wheeler MD [Physician] - 4-7 days ( this appointment scheduled: December, at time of 2:15 pm ) Kacey Malone FNP [Primary Care Provider] - 4-7 days (follow up at at [facility] , Friday, December at time of 09:30 am,K[facility] Primary care .) Discharge Diet: Cardiac Discharge Activity: Increase activity as tolerated and Limit activity as instructed Patient Instructions: Spironolactone (By mouth), Losartan (By mouth), Isosorbide Mononitrate (By mouth) (Imdur, Imdur ER, Ismo), Dilated Cardiomyopathy (GEN), How to Stop Smoking (GEN), Heart Healthy Diet (GEN), Cigarette Smoking and Your Health (GEN), Chronic Hypertension (GEN), Prevent Cardiovascular Disease (GEN), Chest Pain Stoplight, Post Angiogram Home Care Instructions Activity Restrictions/Additional Instructions: Avoid lifting more than 2 lbs for 3 days. If you notice any loss of sensation, pale discoloration of your hand, pain, pulsatile mass in your wrist, or any other concerning symptoms, seek medical attention in ER. Avoid overexertion. 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 Follow-up with cardiology in office regarding dilated cardiomyopathy. Discuss cardiomyopathy also with your supervisor counseling and guidance. Please be aware, it is not common, but hydroxychloroquine has been reported to cause cardiomyopathy. Please discuss with your supervisor counseling and guidance regarding this medication and consideration of switching to a different medication. 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 Please stop smoking, continue medications as prescribed by cardiology, and work on maintaining healthy diet and lifestyle. Please discuss with your primary doctor repeat chest x-ray to reassess for continued resolution of mild pulmonary findings, possible congestive changes, versus residual scarring after COVID-19. In case of persistent dyspnea on exertion, consider pulmonary function testing. Discussed findings also with your supervisor counseling and guidance for consideration of chronic lung disease that may be related to autoimmune process. Stand Alone Forms: Work/School Release Discharge Attestations Time Spent in Discharge Care*: greater than 30 min Quality Metrics Clinical Quality Measures [ No reported AMI, CVA or VTE this stay] Coding Level of Care Code Acute Chg FW DC note Diagnoses Atherosclerotic heart disease of [place] coronary artery with other forms of angina pectoris I25.118 Nonischemic dilated cardiomyopathy I42.0 Chest pain R07.9 Benign essential hypertension with target blood pressure below 140/90 I10 Dyslipidemia E78.5 Smoking addiction F17.200 Abnormal nuclear cardiac imaging test R93.1 Abnormal chest xray R93.89
== END 2021-12-14 11:30 | disposition home or self-care (01) ==
LOC: ER 16:10 → ICU 18:21
PROVIDERS: Internal Medicine; Internal Medicine Cardiovascular Disease; Admitting Provider Internal Medicine; Emergency Provider Family Medicine; PCP Nurse Practitioner; Visit Provider Internal Medicine
DX: I25.118 Atherosclerotic heart disease of native coronary artery with other forms of angina pectoris (principal); I42.0 Dilated cardiomyopathy; R07.9 Chest pain, unspecified; I10 Essential (primary) hypertension; E78.5 Hyperlipidemia, unspecified; F17.200 Nicotine dependence, unspecified, uncomplicated; R93.1 Abnormal findings on diagnostic imaging of heart and coronary circulation; R93.89 Abnormal findings on diagnostic imaging of other specified body structures; Z87.891 Personal history of nicotine dependence; E66.9 Obesity, unspecified; Z68.31 Body mass index [BMI] 31.0-31.9, adult
CPT/HCPCS: 36415; 71045; 78452; 80053; 82550; 83880; 84484; 85025; 85378; 87635; 93005; 93017; 93306; 93458; 93571; 96372; 99152; 99153; 99285; A9500; C1769; C1887; C1894; C8929; G0378; J1644; J1650; J2250; J2785; J3010; J3490; J7030; Q9956; Q9967

== ENCOUNTER → 2021-12-20 12:53 | Outpatient (BNVA) | payer OTHER, SELFPAY | PROVIDERS: PCP Nurse Practitioner; Visit Provider Nurse Practitioner Family | DX: I25.118 Atherosclerotic heart disease of native coronary artery with other forms of angina pectoris (principal); I10 Essential (primary) hypertension; F17.200 Nicotine dependence, unspecified, uncomplicated | CPT/HCPCS: 36415; 80048; 99214 ==

== ENCOUNTER → 2021-12-28 11:21 | Outpatient (BNVA) | payer OTHER, SELFPAY | PROVIDERS: PCP Nurse Practitioner; Visit Provider Nurse Practitioner Family | DX: I25.118 Atherosclerotic heart disease of native coronary artery with other forms of angina pectoris (principal); F17.200 Nicotine dependence, unspecified, uncomplicated; I10 Essential (primary) hypertension | CPT/HCPCS: 99214 ==

== ENCOUNTER → 2022-02-12 11:14 | Outpatient (BNVA) | payer OTHER, SELFPAY | PROVIDERS: PCP Nurse Practitioner; Visit Provider Internal Medicine Cardiovascular Disease | DX: I42.0 Dilated cardiomyopathy (principal); I25.118 Atherosclerotic heart disease of native coronary artery with other forms of angina pectoris; F17.200 Nicotine dependence, unspecified, uncomplicated; E78.5 Hyperlipidemia, unspecified; I10 Essential (primary) hypertension | CPT/HCPCS: 99213 ==

== ENCOUNTER → 2022-08-20 09:12 | Outpatient (BNVA) | payer OTHER, SELFPAY | PROVIDERS: PCP Nurse Practitioner; Visit Provider Nurse Practitioner Family | DX: I42.0 Dilated cardiomyopathy (principal); I25.118 Atherosclerotic heart disease of native coronary artery with other forms of angina pectoris; I10 Essential (primary) hypertension | CPT/HCPCS: 36415; 80048; 83880; 99214 ==

== ENCOUNTER 2022-09-02 06:50 | Outpatient (CLI) | payer OTHER, SELFPAY ==
--- NOTE | 2022-09-02 07:00 | USCV_ITS ---
Clive Conrad Age: 62 Gender: M : 1960 Exam Date: 09/02/2022 07:04 Ordering Phys: Yael Barragan Technologist: [place] [facility] [place]ication: CHEST PAIN BP: 130 / 75 HR: 66 Rhythm: Sinus Technical Quality: Adequate MEASUREMENTS (Male / Female) Normal Values 2D ECHO LV Diastolic Diameter PLAX 5.4 cm 4.2 - 5.9 / 3.9 - 5.3 cm LV Systolic Diameter PLAX 4.9 cm IVS Diastolic Thickness 1.3 cm 0.6 - 1.0 / 0.6 - 0.9 cm IVS Systolic Thickness 1.8 cm LVPW Diastolic Thickness 1.2 cm 0.6 - 1.0 / 0.6 - 0.9 cm LVPW Systolic Thickness 1.8 cm LVOT Diameter 2.0 cm LV Ejection Fraction 2D Teich 10.3 % LV Ejection Fraction MOD 2C 46.0 % LV Ejection Fraction 2C AL 45.1 % LA Diameter 4.4 cm IVC Diameter 2.1 cm M-MODE Aortic Annulus Diameter 4.2 cm LA Ao Ratio MM 1.1 MV E Point Septal Separation 2.2 cm DOPPLER AV Peak Velocity 139.0 cm/s LVOT Peak Velocity 87.0 cm/s AV Area Cont Eq vti 2.1 cm squared AV Area Cont Eq pk 2.0 cm squared MV Area PHT 4.0 cm squared Mitral E to A Ratio 0.8 MV E' Velocity 36.5 cm/s Mitral E to MV E' Ratio 7.2 Mitral E to LV E' Lateral Ratio 6.5 Mitral E to LV E' Septal Ratio 7.9 TR Peak Velocity 153.7 cm/s TR Peak Gradient 9.4 mmHg TV Peak E Velocity 104.0 cm/s Right Atrial Pressure 3.0 mmHg Pulmonary Artery Systolic Pressu 12.4 mmHg RV Acceleration Time 0.2 s FINDINGS Left Ventricle Left ventricle is mildly dilated. LV systolic function is mildly reduced with EF of 40-45%. Mild to moderate global hypokinesis. Grade 1 diastolic dysfunction Right Ventricle Normal in size and function Right Atrium Normal in size Left Atrium Normal in size Mitral Valve Structurally normal mitral valve. Aortic Valve Structurally normal aortic valve. No significant stenosis or regurgitation. Tricuspid Valve Mild tricuspid regurgitation. Insufficient TR jet to calculate RVSP. Pulmonic Valve Not well-visualized Pericardium Normal Aorta Normal in size IVC Appears to be normal CONCLUSIONS Saroj Forrester MD (Electronically Signed) Final Date: 06 September 2022 16:45 S
== END 2022-09-02 06:51 | disposition home or self-care (01) ==
LOC: RAD 06:51
PROVIDERS: PCP Nurse Practitioner; Visit Provider Nurse Practitioner Family
DX: I42.0 Dilated cardiomyopathy (principal); I25.118 Atherosclerotic heart disease of native coronary artery with other forms of angina pectoris; R07.9 Chest pain, unspecified; I07.1 Rheumatic tricuspid insufficiency
CPT/HCPCS: 36415; 80048; 83880; 93306; 99214

== ENCOUNTER → 2023-02-19 10:50 | Outpatient (BNVA) | payer OTHER, SELFPAY | PROVIDERS: PCP Nurse Practitioner; Visit Provider Internal Medicine Cardiovascular Disease | DX: R07.9 Chest pain, unspecified (principal); R06.02 Shortness of breath | CPT/HCPCS: 36415; 80048; 83880; 93005; 99214 ==

== ENCOUNTER → 2023-04-04 09:31 | Outpatient (BNVA) | payer OTHER, SELFPAY | PROVIDERS: PCP Nurse Practitioner; Visit Provider Nurse Practitioner Family | DX: I42.0 Dilated cardiomyopathy (principal); I10 Essential (primary) hypertension; F17.200 Nicotine dependence, unspecified, uncomplicated | CPT/HCPCS: 99214 ==

== ENCOUNTER 2023-04-11 15:37 | Outpatient (CLI) | payer OTHER, SELFPAY ==
[2023-04-11 16:26] LABS: Anion Gap 14.6 (5-19); Blood Urea Nitrogen 10 mg/dL (8-23); Calcium 8.8 mg/dL (8.5-10.5); Carbon Dioxide 25 mmol/L (22-29); Chloride 103 mmol/L (98-107); Glomerular Filtration Rate 86.1 mL/min (90-130); Glucose 100 mg/dL (65-115); NT Pro B Type Natriuretic Pept 55 pg/mL (0-125); Osmolality Calculated 287 mOsm/kg (285-295); Potassium 3.6 mmol/L (3.5-5.1); Sodium 139 mmol/L (136-145)
== END 2023-04-11 15:38 | disposition home or self-care (01) ==
LOC: LAB 15:39
PROVIDERS: PCP Nurse Practitioner; Visit Provider Nurse Practitioner Family
DX: I10 Essential (primary) hypertension (principal); I42.0 Dilated cardiomyopathy
CPT/HCPCS: 80048; 83880

== ENCOUNTER → 2023-04-15 14:58 | Outpatient (BNVA) | payer OTHER, SELFPAY | PROVIDERS: PCP Nurse Practitioner; Visit Provider Podiatrist Foot & Ankle Surgery | DX: M20.21 Hallux rigidus, right foot; M21.41 Flat foot [pes planus] (acquired), right foot; M21.42 Flat foot [pes planus] (acquired), left foot | CPT/HCPCS: 73630; 99213 ==

== ENCOUNTER 2023-05-30 06:59 | Outpatient (CLI) | payer OTHER, SELFPAY ==
--- NOTE | 2023-05-30 07:15 | USCV_ITS ---
Clive Conrad Age: 62 Gender: M : 1960 Exam Date: 05/30/2023 07:22 Ordering Phys: Yael Barragan Technologist: NATALIE [place] [facility] [place]ication: FOLLOW UP EF BP: 104 / 64 HR: 50 Rhythm: Sinus Technical Quality: Adequate MEASUREMENTS (Male / Female) Normal Values 2D ECHO LV Diastolic Diameter PLAX 5.4 cm 4.2 - 5.9 / 3.9 - 5.3 cm IVS Diastolic Thickness 1.1 cm 0.6 - 1.0 / 0.6 - 0.9 cm IVS Systolic Thickness 1.6 cm LVPW Diastolic Thickness 2.5 cm 0.6 - 1.0 / 0.6 - 0.9 cm LVPW Systolic Thickness 3.4 cm LVOT Diameter 2.0 cm LV Ejection Fraction 2D Teich 70.5 % LV Ejection Fraction MOD 2C 56.9 % LV Ejection Fraction 2C AL 56.4 % LA Diameter 3.2 cm RA Systolic Volume 4C AL 33.0 ml RA Systolic Volume 4C MOD 31.0 ml Aorta at Sinotubular Diameter 2.9 cm M-MODE LA Ao Ratio MM 0.9 AV Cusp Separation MM 1.9 cm FINDINGS Left Ventricle Diffuse hypokinesia of the left ventricular ejection fraction of 40 to 45%, (visual). Mildly dilated LV cavity Right Ventricle The right ventricle is normal in size and function. Right Atrium The right atrium is normal in size. Left Atrium The left atrium is normal in size. Mitral Valve No gross abnormalities noted Aortic Valve No gross abnormalities noted Tricuspid Valve No gross abnormalities noted Pulmonic Valve No gross abnormalities noted Pericardium Normal pericardium without effusion. Aorta Normal ascending aorta dimension. IVC Not visualized CONCLUSIONS Diffuse hypokinesia of the left ventricular ejection fraction of 40 to 45%, (visual). Mildly dilated LV cavity. No gross valvular abnormalities No intracardiac masses No significant pericardial effusion Compared to the study from 09/02/2022, there may not be a significant change Dr Mike Wheeler MD FAC (Electronically Signed) Final Date: 30 May 2023 16:07 S
== END 2023-05-30 07:00 | disposition home or self-care (01) ==
PROVIDERS: PCP Nurse Practitioner; Visit Provider Nurse Practitioner Family
DX: I10 Essential (primary) hypertension (principal); I42.0 Dilated cardiomyopathy
CPT/HCPCS: 93308

== ENCOUNTER → 2023-08-20 11:44 | Outpatient (BNVA) | payer OTHER, SELFPAY | PROVIDERS: PCP Nurse Practitioner; Visit Provider Internal Medicine Cardiovascular Disease | DX: R06.02 Shortness of breath (principal) | CPT/HCPCS: 36415; 80048; 83880; 99214 ==

== ENCOUNTER 2023-10-17 06:03 | Outpatient (CLI) | payer OTHER, SELFPAY ==
--- NOTE | 2023-10-17 06:09 | USCV_ITS ---
Clive Conrad Age: 63 Gender: M : 1960 Exam Date: 10/17/2023 06:15 Ordering Phys: Kacey Malone Technologist: MIGUEL ÁNGEL [place] [facility] [place]: Fatigue Risk Factors: Previous Vascular Surgery: Right Brachial BP: / Left Brachial BP: / Right Left Velocity (cm/s) Spectral Plaque Velocity (cm/s) Spectral Plaque Syst/Diast Broadening Syst/Diast Broadening 84.10/ 21.90 Prox CCA 88.70 / 18.40 67.20/ 18.00 Mid CCA 80.90 / 18.20 62.10/ 20.60 Distal CCA 87.70 / 20.00 67.40/ 29.00 Prox ICA 53.30 / 19.80 74.10/ 24.80 Mid ICA 54.60 / 18.40 82.70/ 33.70 Distal ICA 64.50 / 25.50 107.50 ECA 89.00 1.30 ICA/CCA 0.70 Antegrade Vertebral Antegrade 42.00/ 11.90 cm/s 41.10/ 15.80 cm/s Tri Subclavian Tri 92.90 78.50 CONCLUSIONS Right ICA stenosis <50%. Mild atheromatous plaque right carotid bulb/ICA. Left ICA stenosis <50%. Mild atheromatous plaque left carotid bulb/ICA. Intimal thickening in the common carotid arteries and internal carotid arteries bilaterally. Normal antegrade Doppler flow noted in the right vertebral artery. Normal antegrade Doppler flow noted in the left vertebral artery. Souleymane García MD (Electronically Signed) Final Date: 17 October 2023 10:23 S
== END 2023-10-17 06:04 | disposition home or self-care (01) ==
LOC: RAD 06:04
PROVIDERS: PCP Nurse Practitioner; Visit Provider Nurse Practitioner
DX: R53.83 Other fatigue (principal); I65.23 Occlusion and stenosis of bilateral carotid arteries
CPT/HCPCS: 93880

== ENCOUNTER → 2024-02-23 10:37 | Outpatient (BNVA) | payer OTHER, SELFPAY | PROVIDERS: PCP Nurse Practitioner; Visit Provider Internal Medicine Cardiovascular Disease | DX: R07.9 Chest pain, unspecified (principal); R06.02 Shortness of breath | CPT/HCPCS: 36415; 80048; 83880; 93005 ==

== ENCOUNTER 2024-03-02 06:44 | Outpatient (CLI) | payer OTHER, SELFPAY ==
[2024-03-02 07:06] VITALS: BMI 30.5
--- NOTE | 2024-03-02 07:07 | ECG_ITS ---
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 Interpretive Statements Lung unchanged pre/post procedure; Intraprocedure shortess of breath; Symptoms resoled by discharge PROCEDURE: At the baseline, the EKG revealed normal sinus rhythm with normal ST Ts. The baseline heart was 63 bpm with a blood pressue of 109/58 mm of Hg Lexiscan was infused over a period of 20 seconds. A total of 0.4 milligrams of Lexiscan was infused. The stress phase was continued for a total of 5 minutes. Heart rate at the end of the stress phase was 84 bpm with a blood pressure 111/65 mm of Hg. The EKG at the peak infusion revealed no significant changes. Sestamibi was injected 20 seconds after the Lexiscan infusion. Heart rate at the end of the recovery phase was 81 bpm with a blood pressure of 119/56 mm of Hg. CONCLUSION: 1. No significant EKG changes with the LexiScan infusion 2. No LexiScan induced chest pain or cardiac arrhythmia 3. Normal blood pressure and heart rate response 4. Sestamibi/sestamibi perfusion scan pending; see separate report. Electronically Signed On 03-07-2024 17:13:58 EMBEDDED SOFTWARE MANAGER by Mike Wheeler M.D. [email or web address]
--- NOTE | 2024-03-02 07:08 | NMCV_ITS ---
NM fazal perf SPECT r/s* [id number] Clive Conrad Age: 63 Gender: M : 1960 Exam Date: 03/02/2024 07:50 Ordering Phys: Mike Wheeler MD ([email or web address]) Technologist: JOSE Fiore Exam Location: [facility] Indications: cp STRESS TEST [facility] IMAGE PROTOCOL Rest/Stress 1 Lexiscan Day Radiopharmaceutical Dose (mCi) Administration Site Administered by Rest: Tc-99m 10.5 IV Mari Pruett, ANIMAL CHIROPRACTOR Sestamibi Stress:Tc-99m 33 IV Mari Lovettgle, ANIMAL CHIROPRACTOR Sestamibi Rest: 02-Mar-2024 60 Discovery 630 Stress: 02-Mar-2024 30 Discovery 630 0.4mg Lexiscan. Supine position only as patient was unable to lay prone. SPECT RESULTS Technical Quality: Good Raw Data Analysis: Normal Image Corrections: No attenuation or motion correction applied Summed Stress Score: 8 Summed Rest Score: 16 Summed Difference Score: 0 PERFUSION FINDINGS Moderate area of moderately decreased tracer uptake involving the mid and apical inferior, mid inferolateral and apical septal segments. No significant reversibility was noted in these regions FUNCTIONAL RESULTS (calculated via Gated SPECT) Stress Image LV EF (%): 58 Stress EDV (mL):126 TID: 0.92 Stress ESV (mL):53 FUNCTIONAL FINDINGS: Segmental wall motion analysis revealing no gross wall motion abnormalities IMPRESSIONS 1. Myocardial perfusion imaging revealing moderate area of persistent decreased tracer uptake involving the inferior, inferolateral and apical regions suggesting myocardial scarring, predominantly in the distribution of the right coronary with a sum with some involvement of the left circumflex artery artery territory 2. Normal LV ejection fraction of 58%. 3. LV wall motion analysis revealing no gross wall motion abnormalities. 4. Mildly dilated LV cavity No significant coronary ischemia, based on the above findings Dr Mike Wheeler MD FACC (Electronically Signed) Final Date: 02 March 2024 17:37 S
[2024-03-02] MEDS: regadenoson 0.4 Mg/5 ml Syringe IVP (08:25)
[2024-03-02 08:39] VITALS: BP 119/65; PULSE 65
== END 2024-03-02 06:45 | disposition home or self-care (01) ==
LOC: CDL 06:44
PROVIDERS: PCP Nurse Practitioner; Visit Provider Internal Medicine Cardiovascular Disease
DX: R07.9 Chest pain, unspecified (principal); Z98.61 Coronary angioplasty status; I51.7 Cardiomegaly
CPT/HCPCS: 36415; 78452; 93017; 96374; A9500; J2785

== ENCOUNTER 2024-03-04 08:53 | Outpatient (CLI) | payer OTHER, SELFPAY ==
[2024-03-04 09:13] VITALS: PULSE 72; RESP 18; O2SAT 97
[2024-03-04] MEDS: albuterol 2.5 mg/3 mL Neb INHALATION (09:13)
[2024-03-04 09:18] VITALS: PULSE 78
== END 2024-03-04 08:54 | disposition home or self-care (01) ==
LOC: RT 08:53
PROVIDERS: PCP Nurse Practitioner; Visit Provider Chiropractor
DX: J44.9 Chronic obstructive pulmonary disease, unspecified (principal); I70.0 Atherosclerosis of aorta; R94.2 Abnormal results of pulmonary function studies
CPT/HCPCS: 94060; 94726; 94729; J7613

== ENCOUNTER 2024-03-04 10:02 | Outpatient (CLI) | payer OTHER, SELFPAY ==
--- NOTE | 2024-03-04 10:15 | XR_ITS ---
WS: [id number] CHEST 2 VIEWS HISTORY: COPD COMPARISON: 12/12/2021 Lungs: Progression of interstitial prominence and thickening throughout both lungs. Central peribronc hial soft tissue thickening greatest on the LEFT. Slight fullness at the LEFT hilum. No dense area of consolidation. Cardiac size: Normal. Mediastinum/Aorta: Mild atherosclerosis aorta. Bones: Normal. XR/XR chest 2V* [id number] IMPRESSION: 1. Mild interstitial thickening and central peribronchial thickening. Changes may all be related to acute bronchitis. No dense consolidation or pneumonia. 2. Recommend follow-up chest radiograph after treatment for bronchitis. If fin dings do not resolve chest CT with IV contrast should be obtained.
== END 2024-03-04 10:03 | disposition home or self-care (01) ==
PROVIDERS: PCP Nurse Practitioner; Visit Provider Nurse Practitioner
DX: J44.9 Chronic obstructive pulmonary disease, unspecified (principal); R91.8 Other nonspecific abnormal finding of lung field; I70.0 Atherosclerosis of aorta
CPT/HCPCS: 71046

== ENCOUNTER → 2024-08-24 09:42 | Outpatient (BNVA) | payer OTHER, SELFPAY | PROVIDERS: PCP Nurse Practitioner; Visit Provider Nurse Practitioner Family | DX: I10 Essential (primary) hypertension (principal); I42.0 Dilated cardiomyopathy; E78.5 Hyperlipidemia, unspecified; F17.200 Nicotine dependence, unspecified, uncomplicated; I25.118 Atherosclerotic heart disease of native coronary artery with other forms of angina pectoris | CPT/HCPCS: 99214 ==

== ENCOUNTER 2024-10-01 07:19 | Outpatient (CLI) | payer OTHER, SELFPAY ==
--- NOTE | 2024-10-01 07:45 | USCV_ITS ---
Clive Conrad Age: 64 Gender: M : 1960 Exam Date: 10/01/2024 07:29 Ordering Phys: Yael Barragan Technologist: Exam Location: [facility] [place] Indication: ef cardio fazal BP: 101 / 61 HR: 56 Rhythm: Sinus Technical Quality: Adequate MEASUREMENTS (Male / Female) Normal Values 2D ECHO LV Diastolic Diameter PLAX 4.5 cm 4.2 - 5.9 / 3.9 - 5.3 cm IVS Diastolic Thickness 1.2 cm 0.6 - 1.0 / 0.6 - 0.9 cm IVS Systolic Thickness 2.0 cm LVPW Diastolic Thickness 1.6 cm 0.6 - 1.0 / 0.6 - 0.9 cm LVPW Systolic Thickness 1.8 cm LVOT Diameter 2.1 cm LV Ejection Fraction 2D Teich 29.6 % LV Ejection Fraction MOD 4C 62.1 % LV Ejection Fraction MOD 2C 55.4 % LV Ejection Fraction 2C AL 56.4 % LA Diameter 3.7 cm RA Systolic Volume 4C AL 57.7 ml RA Systolic Volume 4C MOD 55.0 ml Aorta at Sinotubular Diameter 3.1 cm IVC Diameter 1.4 cm M-MODE LA Ao Ratio MM 1.0 AV Cusp Separation MM 2.0 cm DOPPLER AV Peak Velocity 141.0 cm/s LVOT Peak Velocity 88.0 cm/s AV Area Cont Eq vti 2.2 cm squared AV Area Cont Eq pk 2.1 cm squared MV Area PHT 4.9 cm squared Mitral E to A Ratio 0.9 TV Peak Velocity 192.5 cm/s TR Peak Velocity 202.0 cm/s TR Peak Gradient 16.3 mmHg TV Peak E Velocity 84.0 cm/s PV Peak Velocity 104.0 cm/s FINDINGS Left Ventricle Normal left ventricular size, systolic function and wall thickness, with no regional wall motion abnormalities. Left ventricular ejection fraction is estimated at 60 %. Grade I/IV diastolic dysfunction (abnormal relaxation filling pattern), normal to mildly elevated filling pressures. Right Ventricle The right ventricle is normal in size and function. Right Atrium The right atrium is normal in size. Left Atrium The left atrium is normal in size. Mitral Valve Mildly thickened mitral valve. No mitral valve stenosis. Trace mitral valve regurgitation. Aortic Valve Structurally normal aortic valve without significant sclerosis or stenosis. There is no aortic regurgitation. Tricuspid Valve Structurally normal tricuspid valve without significant stenosis or regurgitation. Pulmonary artery systolic pressure is normal. Pulmonic Valve Structurally normal pulmonic valve without significant stenosis. There is no pulmonic regurgitation. Pericardium Normal pericardium without effusion. Aorta Normal ascending aorta dimension. IVC The inferior vena cava appears normal. CONCLUSIONS Normal left ventricular size, systolic function and wall thickness, with no regional wall motion abnormalities. Left ventricular ejection fraction is estimated at 60 %. Grade I/IV diastolic dysfunction (abnormal relaxation filling pattern), normal to mildly elevated filling pressures. Mildly thickened mitral valve. No mitral valve stenosis. Trace mitral valve regurgitation. There is no pericardial effusion. Right atrial pressure is around 5 mm of mercury. Tatiana Short MD (Electronically Signed) Final Date: 02 October 2024 19:19 S
== END 2024-10-01 07:20 | disposition home or self-care (01) ==
LOC: RAD 07:20
PROVIDERS: PCP Nurse Practitioner; Visit Provider Nurse Practitioner Family
DX: I42.0 Dilated cardiomyopathy (principal); I51.89 Other ill-defined heart diseases; I34.0 Nonrheumatic mitral (valve) insufficiency
CPT/HCPCS: 93306

== ENCOUNTER → 2024-11-02 11:08 | Outpatient (BNVA) | payer OTHER, SELFPAY | PROVIDERS: PCP Nurse Practitioner; Visit Provider Surgery | DX: Z12.11 Encounter for screening for malignant neoplasm of colon (principal) | CPT/HCPCS: 99204 ==

== ENCOUNTER → 2024-11-04 08:43 | Outpatient (BNVA) | payer OTHER, SELFPAY | PROVIDERS: PCP Nurse Practitioner; Visit Provider Podiatrist Foot & Ankle Surgery | DX: M20.21 Hallux rigidus, right foot (principal); M21.41 Flat foot [pes planus] (acquired), right foot; M21.42 Flat foot [pes planus] (acquired), left foot | CPT/HCPCS: 99213 ==

== ENCOUNTER 2024-11-18 09:28 | Day surgery (SDC) | payer OTHER, SELFPAY ==
[2024-11-18 09:35] VITALS: BP 119/70; PULSE 84; RESP 16; TEMP 36.3; O2SAT 96; BMI 30.5
--- NOTE | 2024-11-18 09:57 | W.PM.OPSUD ---
Surgery/Procedure H&P Update DATE OF PROCEDURE: November 18, 2024 DATE H&P PERFORMED: 11/02/24 H&P UPDATE INFORMATION: I have reviewed H&P completed within last 30 days, I have examined patient prior to procedure, No changes to prior documentation, H&P is in [facility] EMR on date indicated and Risks and benefits of the procedure reviewed PLANNED PROCEDURE: Operation Date: 11/18/24 11:15 Proposed Procedures p Colonoscopy [id number] G0121 Z12.11(Not Applicable) - Royal Thompson MD
--- NOTE | 2024-11-18 10:00 | ANES.PREANE2 ---
Pre-Anesthetic Assessment Height/Weight: Height 1.83 m Weight 102.058 kg Temp Pulse Resp BP Pulse Ox O2 Del Method 97.4 F L 84 16 119/70 96 Room Air 11/18/24 09:35 11/18/24 09:35 11/18/24 09:35 11/18/24 09:35 11/18/24 09:35 11/18/24 09:35 Preop Diagnosis: screening Operation Date: 11/18/24 11:15 Proposed Procedures p Colonoscopy [id number] G0121 Z12.11(Not Applicable) - Royal Thompson MD Familial anesthetic complications: none Was Beta Hi taken within 24 hours: Yes Was Clonidine taken within 24 hours: N/A Last intake: Intake Last Liquid Date 11/17/24 Last Liquid Time 19:00 Last Solid Date 11/16/24 Last Solid Time 19:00 Social Tobacco and No alcohol Exam alert and oriented x 3 Airway Submandibular: within normal limits Cervical ROM: within normal limits Mallampati: Class I Dentition: false History/ROS No significant history except as noted Pulmonary Chronic Obstructive Pulmonary Disease, Sleep Apnea (does not use cpap) and Shortness of Breath CV/HEM Coronary Artery Disease, Congestive Heart Failure and Hypertension None reported Hepatic None reported GI None reported Metabolic Morbid Obesity [facility] [place] None reported Neuropsych None reported Anesthetic Plan ASA status: 3 Anesthesia: Anesthesia Evaluation and MAC Medications/Allergies Home Medications ?Medication ?Instructions ?Recorded ?Confirmed ?Last Taken ?Type custom orthotics with ayala's #1 ea 02/28/20 11/18/24 Unknown Rx extension on right foot custom orthotics with ayala's #1 ea 06/28/20 11/18/24 Unknown Rx extension on right foot aspirin 81 mg tablet,delayed 81 mg PO DAILY #30 tabs 12/12/21 11/18/24 11/17/24 Rx release spironolactone 25 mg tablet 25 mg PO DAILY 02/12/22 11/18/24 11/17/24 History B-complex with vitamin C 1 cap PO DAILY 02/19/23 11/18/24 11/17/24 History amlodipine 5 mg tablet 5 mg PO DAILY 02/19/23 11/18/24 11/17/24 History isosorbide mononitrate 30 mg 30 mg PO BID #180 tabs 03/28/23 11/18/24 11/17/24 Rx tablet,extended release 24 hr nitroglycerin 0.4 mg sublingual 0.4 mg sublingual Q5M PRN chest 03/28/23 11/18/24 Unknown Rx tablet pain #30 tabs sacubitril 97 mg-valsartan 103 mg 1 tab PO BID #180 tabs 03/28/23 11/18/24 11/17/24 Rx tablet Orthopedic Shoes #1 ea 04/15/23 11/18/24 Unknown Rx metoprolol tartrate 25 mg tablet 12.5 mg (1/2 x 25 mg) PO BID #60 05/05/23 11/18/24 11/18/24 Rx tabs furosemide 20 mg tablet 20 mg PO DAILY #90 tabs 06/23/23 11/18/24 11/17/24 Rx mecobalamin (vitamin B12) 500 mcg 500 mcg PO DAILY 11/02/24 11/18/24 11/17/24 History chewable tablet ondansetron 8 mg disintegrating 8 mg PO Q8H PRN nausea and 11/02/24 11/18/24 11/15/24 06:00 Rx tablet vomiting #3 tabs Low Profile Custom Insoles #2 ea 11/04/24 11/18/24 Unknown Rx lidocaine 5 % topical patch 1 patch topical DAILY #30 ea 11/04/24 11/18/24 Unknown Rx atorvastatin 40 mg tablet (Lipitor) 20 mg PO QPM 11/15/24 11/18/24 11/17/24 History Allergies Allergy/AdvReac Type Severity Reaction Status Date / Time Alpha-Gal Allergy ADR-Abdominal Verified 11/15/24 09:34 (Veokyuuzl-Mnqkn-2,3-Gala Pain Current Medications Generic Name Dose Route Start Last Admin Trade Name Freq PRN Reason Stop Dose Admin Sodium Chloride 1,000 mls @ 15 mls/hr 11/18/24 09:31 11/18/24 09:44 Sodium Chloride 0.9% IV 11/19/24 09:30 15 mls/hr .Q24H PRN Administration COLONOSCOPY FLUIDS PFSH Anesthesia Medical History Hypertension Undifferentiated spondyloarthropathy High cholesterol Surgical History H/O foot surgery Family History Mother CAD (coronary artery disease) Denies family history of Diabetes Cancer Social History Smoking and tobacco/nicotine status: current every day tobacco/nicotine user Alcohol intake: never Substance/Drug Use: never Household members: spouse Marital status: Current occupational status: employed Current occupation: [employer] Anesthesia Cardiac Studies: Echocardiogram 10/01/24 Echocardiogram Limited Views 05/30/23 Sestamibi Stress Test (Cardiology) 03/02/24
[2024-11-18 10:39] VITALS: BP 81/59; PULSE 59; RESP 16; TEMP 36.1; O2SAT 90
--- NOTE | 2024-11-18 10:41 | PC.NURSE ---
cecum time 1024
[2024-11-18 10:55] VITALS: BP 104/61; PULSE 66; RESP 16; TEMP 35; O2SAT 96
--- NOTE | 2024-11-18 11:29 | ANE.PACU2 ---
Inpatient post-anesthesia follow up: Airway intact: Yes Vital signs: Temperature 95 F Pulse Rate 66 Respiratory Rate 16 Blood Pressure 104/61 Pulse Oximetry 96 Oxygen Delivery Me thod Room Air Oxygen Flow Rate Fraction of Inspir ed Oxygen Hydration adequate: Yes Nausea and vomiting: No Pain level: 1 Mental status: Baseline
== END 2024-11-18 11:17 | disposition home or self-care (01) ==
PROVIDERS: PCP Nurse Practitioner; Visit Provider Surgery
PROC: 0DJD8ZZ Inspection of Lower Intestinal Tract, Via Natural or Artificial Opening Endoscopic (ICD-10-PCS; CPT 45378; principal; 2024-11-18 11:15)
DX: Z12.11 Encounter for screening for malignant neoplasm of colon (principal); K57.30 Diverticulosis of large intestine without perforation or abscess without bleeding; D12.5 Benign neoplasm of sigmoid colon; D12.3 Benign neoplasm of transverse colon; J44.9 Chronic obstructive pulmonary disease, unspecified; I25.10 Atherosclerotic heart disease of native coronary artery without angina pectoris; G47.30 Sleep apnea, unspecified; I11.0 Hypertensive heart disease with heart failure; I50.9 Heart failure, unspecified; E66.01 Morbid (severe) obesity due to excess calories; Z68.30 Body mass index [BMI] 30.0-30.9, adult; Z79.82 Long term (current) use of aspirin; Z91.014 Allergy to mammalian meats; F17.200 Nicotine dependence, unspecified, uncomplicated
CPT/HCPCS: 45380; 45385; 88305; J2704; J3490; J7030

== ENCOUNTER → 2024-12-01 08:49 | Outpatient (BNVA) | payer OTHER, SELFPAY | PROVIDERS: PCP Nurse Practitioner; Visit Provider Surgery | DX: Z09 Encounter for follow-up examination after completed treatment for conditions other than malignant neoplasm (principal) | CPT/HCPCS: 99213 ==